=== PATIENT | male | born 1960 | race Caucasian/White ===

== ENCOUNTER 2018-11-12 10:51 | Inpatient (IN) | payer OTHER ==
--- NOTE | 2018-11-12 11:20 | EKG ---
Test Date: 2018-11-12 Test Time: 11:08:05 [employer]: ESCOBAR MEASUREMENT RESULTS: Intervals: Rate: 114 SC: 142 QRSD: 162 QT: 380 QTc: 523 [place]ina: P: 37 SC: 142 QRS: -83 T: 13 INTERPRETIVE STATEMENTS: Sinus tachycardia Right bundle branch block Left anterior fascicular block Bifascicular block Possible Lateral infarct, age undetermined Abnormal ECG Compared to ECG 04/02/2006 11:17:14 Right bundle-branch block now present Left anterior fascicular block now present Bifascicular block now present Myocardial infarct finding now present Sinus rhythm no longer present Left ventricular hypertrophy no longer present Electronically Signed On 11-12-18 11:19:35 [employer] by Satya Millan
[2018-11-12 11:41] LABS: Absolute Lymphocytes (CBC) 3.7 K/uL (0.7-4.9); Absolute Monocytes 0.8 K/uL (0.1-1.3); Absolute Neutrophil 7.7 K/uL (1.8-8.0); Eosinophils % 0.1 % (0-4.4); Hematocrit 55.9 % (39.6-49.0); Lymphocytes % 29.9 % (15.3-44.8); MPV 9.4 fL (7.6-11.3); Monocytes % 6.7 % (3.3-12.3); RBC Red Blood Cell Count 6.22 M/uL (4.33-5.43)
[2018-11-12 11:42] LABS: Protime INR 1.1
--- NOTE | 2018-11-12 11:42 | RAD REPORT ---
EXAM DESCRIPTION: RAD - Chest Single View - 11/12/2018 11:35 am CLINICAL HISTORY: CHEST PAIN Chest pain. COMPARISON: No comparisons FINDINGS: Portable technique limits examination quality. The lungs are grossly clear. The heart is mildly prominent with a mildly tortuous thoracic aorta. No displaced fractures.Hardware is present cervical spine. IMPRESSION: No acute intrathoracic process suspected.
[2018-11-12] MEDS ORDERED: ASPIRIN 81 MG CHEWABLE TABLET ONE (11:44)
[2018-11-12] MEDS ORDERED: METOPROLOL TAR 50 MG TAB ONE (11:44)
[2018-11-12] MEDS ORDERED: ENOXAPARIN 100 MG/ML SYR SQ ONE (11:45)
[2018-11-12] MEDS ORDERED: ONDANSETRON 4 MG/2 ML VIAL ONE (11:45)
[2018-11-12] MEDS ORDERED: METOPROLOL TARTRATE 5 MG/5 ML INJ IV ONE (11:45)
[2018-11-12] MEDS ORDERED: ENOXAPARIN 60 MG/0.6 ML SQ ONE (11:45)
[2018-11-12 11:59] LABS: ALT/SGPT 35 U/L (12-78); AST/SGOT 20 U/L (15-37); Albumin 4.3 g/dL (3.4-5.0); Alkaline Phosphatase 70 U/L (45-117); BUN Blood Urea Nitrogen 14 mg/dL (7-18); Bilirubin Direct 0.2 mg/dL (0-0.2); Bilirubin Total 0.5 mg/dL (0.2-1.0); Glucose Level 213 mg/dL (74-106); Lipase 175 U/L (73-393); Magnesium 2.5 mg/dL (1.8-2.4); NT PRO-BNP 63 pg/mL (<125); Potassium 4.7 mmol/L (3.5-5.1); Protein, Total 9.8 g/dL (6.4-8.2); Sodium Level 134 mmol/L (136-145); Troponin (Emerg Dept Use Only) < 0.02 ng/mL (0.0-0.045)
[2018-11-12 12:03] LABS: Bicarbonate 13 mmol/L (21-32)
[2018-11-12 12:23] LABS: Arterial Blood Carboxyhemoglob 1.1 % (0-1.5); Blood Gas Oxyhemoglobin 93.6 % (94-97); Blood O2 Saturation 96.1 % (92-98.5)
--- NOTE | 2018-11-12 12:45 | EDPHYS ---
Physician Documentation [facility] Name: Christiano Phipps Age: 57 yrs Sex: Male : 1960 Arrival Date: 11/12/2018 Time: 10:53 Bed 8 Private MD: NAYLA TOVAR ED Physician Earnest Kelley HPI: 11/12 11:28 This 57 yrs old Male presents to ER via Ambulatory with complaints of alfred Weakness, Chest Pain. 11:28 The patient presents to the emergency department with weakness of the. Onset: The alfred symptoms/episode began/occurred 4 day(s) ago. 11:29 The patient has shortness of breath with light activity. Duration: The symptoms are alfred continuous, and are steadily getting worse. The patient's shortness of breath is aggravated by light activity. The patient or guardian reports chest pain that is located primarily in the anterior chest wall, bilaterally. Onset: 4 day(s) ago. obese, cp x 4 days. The pain does not radiate. Associated signs and symptoms: Pertinent positives: non-productive cough. Severity of symptoms: At their worst the symptoms were moderate in the emergency department the symptoms are unchanged. Historical: - Allergies: 11:09 PENICILLINS; ss - Home Meds: 11:24 carvedilol 25 mg oral tab 1 tab daily [Active]; doxazosin 4 mg oral tab 1 tab once la1 daily [Active]; Farxiga 5 mg oral tab 1 tab once daily [Active]; losartan 100 mg oral tab 1 tab once daily [Active]; metformin 1,000 mg Oral tab 1 tab 2 times per day [Active]; aspirin 81 mg Oral TbEC 1 tab once daily [Active]; - PMHx: 11:09 Hypertension; Diabetes - NIDDM; ss - PSHx: 11:09 R elbow repair; knee repair; ss - Immunization history:: Adult Immunizations up to date. - Social history:: Smoking status: Patient/guardian denies using tobacco. - Ebola Screening: : Patient denies exposure to infectious person Patient denies travel to an Ebola-affected area in the 21 days before illness onset. - Family history:: not pertinent. ROS: 11:29 Constitutional: Negative for fever, chills, and weight loss, Eyes: Negative for injury, alfred pain, redness, and discharge, ENT: Negative for injury, pain, and discharge, Neck: Negative for injury, pain, and swelling, Abdomen/GI: Negative for abdominal pain, nausea, vomiting, diarrhea, and constipation, Back: Negative for injury and pain, : Negative for injury, bleeding, discharge, and swelling, MS/Extremity: Negative for injury and deformity, Skin: Negative for injury, rash, and discoloration, Neuro: Negative for headache, weakness, numbness, tingling, and seizure, Psych: Negative for depression, anxiety, suicide ideation, homicidal ideation, and hallucinations, Allergy/Immunology: Negative for hives, rash, and allergies, Endocrine: Negative for neck swelling, polydipsia, polyuria, polyphagia, and marked weight changes, Hematologic/Lymphatic: Negative for swollen nodes, abnormal bleeding, and unusual bruising. 11:29 Cardiovascular: Positive for chest pain. 11:29 Respiratory: Positive for shortness of breath. 11:29 Abdomen/GI: Positive for nausea. Exam: 11:29 Constitutional: This is a well developed, well nourished patient who is awake, alert, alfred and in no acute distress. Head/Face: Normocephalic, atraumatic. Eyes: Pupils equal round and reactive to light, extra-ocular motions intact. Lids and lashes normal. Conjunctiva and sclera are non-icteric and not injected. Cornea within normal limits. Periorbital areas with no swelling, redness, or edema. ENT: Nares patent. No nasal discharge, no septal abnormalities noted. Tympanic membranes are normal and external auditory canals are clear. Oropharynx with no redness, swelling, or masses, exudates, or evidence of obstruction, uvula midline. Mucous membranes moist. Neck: Trachea midline, no thyromegaly or masses palpated, and no cervical lymphadenopathy. Supple, full range of motion without nuchal rigidity, or vertebral point tenderness. No Meningismus. Chest/axilla: Normal chest wall appearance and motion. Nontender with no deformity. No lesions are appreciated. Cardiovascular: Regular rate and rhythm with a normal S1 and S2. No gallops, murmurs, or rubs. Normal PMI, no JVD. No pulse deficits. Respiratory: Lungs have equal breath sounds bilaterally, clear to auscultation and percussion. No rales, rhonchi or wheezes noted. No increased work of breathing, no retractions or nasal flaring. Abdomen/GI: Soft, non-tender, with normal bowel sounds. No distension or tympany. No guarding or rebound. No evidence of tenderness throughout. Back: No spinal tenderness. No costovertebral tenderness. Full range of motion. Male : Normal genitalia with no discharge or lesions. Skin: Warm, dry with normal turgor. Normal color with no rashes, no lesions, and no evidence of cellulitis. MS/ Extremity: Pulses equal, no cyanosis. Neurovascular intact. Full, normal range of motion. Neuro: Awake and alert, GCS 15, oriented to person, place, time, and situation. Cranial nerves II-XII grossly intact. Motor strength 5/5 in all extremities. Sensory grossly intact. Cerebellar exam normal. Normal gait. Psych: Awake, alert, with orientation to person, place and time. Behavior, mood, and affect are within normal limits. Vital Signs: 11:09 BP 163 / 107; Pulse 107; Resp 25; Temp 98.8(O); Pulse Ox 97% on R/A; Weight 181.44 kg; ss Height 6 ft. 3 in. (190.50 cm); Pain 6/10; 11:57 BP 158 / 105; Pulse 107; Resp 18; Pulse Ox 98% on R/A; la1 13:42 BP 175 / 87; Pulse 106; Resp 18; Pulse Ox 98% on R/A; la1 14:09 BP 158 / 83; Pulse 102; Resp 18; Pulse Ox 98% on R/A; la1 14:49 BP 158 / 88; Pulse 103; Resp 16; Temp 97.8(TE); Pulse Ox 98% on R/A; la1 11:09 Body Mass Index 50.00 (181.44 kg, 190.50 cm) MDM: 11:12 Patient medically screened. [facility] 11:32 Data reviewed: vital signs, nurses notes, lab test result(s), EKG, radiologic studies, alfred plain films. 11/12 11:13 Order name: Basic Metabolic Panel; Complete Time: 12:04 11/12 11:13 Order name: CBC with Diff; Complete Time: 12:04 11/12 11:13 Order name: LFT's; Complete Time: 12:04 11/12 11:13 Order name: Magnesium; Complete Time: 12:04 11/12 11:13 Order name: NT PRO-BNP; Complete Time: 12:04 nj11/12 11:13 Order name: PT-INR; Complete Time: 12:04 [facility] 11/12 11:13 Order name: Troponin (emerg Dept Use Only); Complete Time: 12:04 [facility] 11/12 11:14 Order name: Lipase; Complete Time: 12:04 [facility] 11/12 12:04 Order name: ABG; Complete Time: 12:37 [facility] 11/12 12:15 Order name: Blood Culture Adult (2) [facility] 11/12 12:15 Order name: Procalcitonin [facility] 11/12 12:15 Order name: Lactate [facility] 11/12 12:35 Order name: Urine Potassium Random; Complete Time: 13:35 [facility] 11/12 12:35 Order name: Urine Sodium Random; Complete Time: 13:35 [facility] 11/12 11:13 Order name: XRAY Chest (1 view); Complete Time: 12:04 [facility] 11/12 12:14 Order name: US Extremity Venous W Compression Alhaji [facility] 11/12 12:35 Order name: US Rp Exam Complete [facility] 11/12 12:47 Order name: LAB Misc. Test ag 11/12 13:01 Order name: Acetone Level [facility] 11/12 13:14 Order name: Urine Dipstick--Ancillary (enter results) ag 11/12 13:28 Order name: UR CL RANDOM; Complete Time: 13:35 [facility] 11/12 13:29 Order name: Urine Dipstick-Ancillary; Complete Time: 13:35 [facility] 11/12 14:48 Order name: Glucose, Ancillary Testing [facility] 11/12 14:49 Order name: [facility] 11/12 14:49 Order name: [facility] 11/12 11:13 Order name: EKG; Complete Time: 11:15 nj11/12 11:13 Order name: Cardiac monitoring; Complete Time: 11:14 nj11/12 11:13 Order name: EKG - Nurse/Tech; Complete Time: 11:14 nj11/12 11:13 Order name: IV Saline Lock; Complete Time: 11:14 nj11/12 11:14 Order name: Labs collected and sent; Complete Time: 11:14 nj11/12 11:14 Order name: O2 Per Protocol; Complete Time: 11:14 nj 11/12 11:14 Order name: O2 Sat Monitoring; Complete Time: 11:14 la1 11/12 12:13 Order name: IV - Large Bore; Complete Time: 13:43 alfred 11/12 12:32 Order name: Luciano; Complete Time: 12:54 alfred Administered Medications: 11:49 Drug: Zofran 4 mg Route: IVP; Site: left hand; la1 12:56 Follow up: Response: No adverse reaction la1 11:49 Drug: Aspirin Chewable Tablet 324 mg Route: PO; la1 12:56 Follow up: Response: No adverse reaction la1 11:50 Drug: Lovenox 150 mg Route: Sub-Q; Site: right lower abdomen; la1 12:56 Follow up: Response: No adverse reaction la1 11:52 Drug: Lopressor (metoprolol TARTRATE) 50 mg Route: PO; la1 12:55 Follow up: Response: No adverse reaction la1 11:52 Drug: Lopressor 5 mg Route: IVP; Site: left hand; la1 12:55 Follow up: Response: No adverse reaction; Blood pressure is lowered la1 12:33 CANCELLED (Duplicate Order): NS 0.9% 1000 ml IV at 125 ml/hr continuous alfred 13:44 Drug: NS 0.9% 1000 ml Route: IV; Rate: 1 bolus; Site: right antecubital; la1 13:48 Follow up: IV Status: Infusion continued upon admission la1 13:44 Drug: NS 0.9% 1000 ml Route: IV; Rate: 1 bolus; Site: left hand; la1 13:47 Follow up: IV Status: Infusion continued upon admission la1 13:44 Drug: Rocephin 1 grams Route: IV; Rate: per protocol; Site: left hand; la1 13:47 Follow up: IV Status: Completed infusion la1 13:47 Drug: Sodium Bicarbonate 1300 mg Route: PO; la1 13:47 Follow up: Response: No adverse reaction la1 14:50 Not Given (Other Intervention Used): Lactated Ringers Solution 1000 ml IV at 75 ml/hr la1 continuous Disposition: 11/12/18 12:45 Hospitalization ordered by Ameena Parker for Inpatient Admission. Preliminary diagnosis are Acidosis, Chest pain, unspecified, Obesity, unspecified, Type 2 diabetes mellitus. - Bed requested for Intensive Care Unit. - Status is Inpatient Admission. la1 - Condition is Serious. - Problem is new. - Symptoms are unchanged. UTI on Admission? No Signatures: Dispatcher [employer] EDEarnest Durbin MD MD cha Smirch, Shelby RN RN ss Rakesh Lr RN RN la1 Martina Carrion, INO RN df Corrections: (The following items were deleted from the chart) 12:33 12:13 NS 0.9% 1000 ml IV at 125 ml/hr continuous ordered. alfred [facility] 14:05 12:45 Hospitalization Ordered by Ameena Parker MD for Inpatient Admission. Preliminary df diagnosis is Acidosis; Chest pain, unspecified; Obesity, unspecified; Type 2 diabetes mellitus. Bed requested for Intensive Care Unit. Status is Inpatient Admission. Condition is Serious. Problem is new. Symptoms are unchanged. UTI on Admission? No. [facility] 14:53 14:05 11/12/2018 12:45 Hospitalization Ordered by Ameena Parker MD for Inpatient la1 Admission. Preliminary diagnosis is Acidosis; Chest pain, unspecified; Obesity, unspecified; Type 2 diabetes mellitus. Bed requested for Intensive Care Unit. Status is Inpatient Admission. Condition is Serious. Problem is new. Symptoms are unchanged. UTI on Admission? No. df
--- NOTE | 2018-11-12 12:45 | ER ---
Nurse's Notes [facility] Name: Christiano Phipps Age: 57 yrs Sex: Male : 1960 Arrival Date: 11/12/2018 Time: 10:53 Bed 8 Private MD: NAYLA TOVAR Diagnosis: Acidosis;Chest pain, unspecified;Obesity, unspecified;Type 2 diabetes mellitus Presentation: 11/12 11:08 Presenting complaint: Patient states: shortness of breath and chest pain on exertion x ss 2-3 days. Denies fever. Reports mild cough. Transition of care: patient was not received from another setting of care. Onset of symptoms was November 09, 2018. Risk Assessment: Do you want to hurt yourself or someone else? Patient reports no desire to harm self or others. Initial Sepsis Screen: Does the patient meet any 2 criteria? RR > 20 per min. HR > 90 bpm. Does the patient have a suspected source of infection? No. Patient's initial sepsis screen is negative. Care prior to arrival: None. 11:08 Method Of Arrival: Ambulatory ss 11:08 Acuity: BERTHA 2 ss Historical: - Allergies: 11:09 PENICILLINS; ss - Home Meds: 11:24 carvedilol 25 mg oral tab 1 tab daily [Active]; doxazosin 4 mg oral tab 1 tab once la1 daily [Active]; Farxiga 5 mg oral tab 1 tab once daily [Active]; losartan 100 mg oral tab 1 tab once daily [Active]; metformin 1,000 mg Oral tab 1 tab 2 times per day [Active]; aspirin 81 mg Oral TbEC 1 tab once daily [Active]; - PMHx: 11:09 Hypertension; Diabetes - NIDDM; ss - PSHx: 11:09 R elbow repair; knee repair; ss - Immunization history:: Adult Immunizations up to date. - Social history:: Smoking status: Patient/guardian denies using tobacco. - Ebola Screening: : Patient denies exposure to infectious person Patient denies travel to an Ebola-affected area in the 21 days before illness onset. - Family history:: not pertinent. Screenin:15 Abuse screen: Denies threats or abuse. Nutritional screening: No deficits noted. la1 Tuberculosis screening: No symptoms or risk factors identified. Fall Risk None identified. Assessment: 11:16 General: Appears uncomfortable, ill, Behavior is cooperative. Pain: Complains of pain la1 in chest Pain does not radiate. Pain currently is 5 out of 10 on a pain scale. Neuro: Level of Consciousness is awake, alert, obeys commands, Oriented to person, place, time, situation. Cardiovascular: Heart tones S1 S2 present Capillary refill < 3 seconds Patient's skin is warm and dry. Rhythm is sinus tachycardia. Respiratory: Airway is patent Respiratory effort is even, unlabored, Respiratory pattern is regular, symmetrical, Breath sounds are clear bilaterally. GI: Abdomen is obese, Bowel sounds present X 4 quads. Abd is soft and non tender X 4 quads. Reports constipation, Patient currently denies nausea, vomiting. : No signs and/or symptoms were reported regarding the genitourinary system. 13:43 Reassessment: Patient appears in no apparent distress at this time. No changes from la1 previously documented assessment. Patient and/or family updated on plan of care and expected duration. Pain level reassessed. Patient is alert, oriented x 3, equal unlabored respirations, skin warm/dry/pink. 14:20 Reassessment: Patient appears in no apparent distress at this time. No changes from la1 previously documented assessment. Patient and/or family updated on plan of care and expected duration. Pain level reassessed. Patient is alert, oriented x 3, equal unlabored respirations, skin warm/dry/pink. Vital Signs: 11:09 BP 163 / 107; Pulse 107; Resp 25; Temp 98.8(O); Pulse Ox 97% on R/A; Weight 181.44 kg; ss Height 6 ft. 3 in. (190.50 cm); Pain 6/10; 11:57 BP 158 / 105; Pulse 107; Resp 18; Pulse Ox 98% on R/A; la1 13:42 BP 175 / 87; Pulse 106; Resp 18; Pulse Ox 98% on R/A; la1 14:09 BP 158 / 83; Pulse 102; Resp 18; Pulse Ox 98% on R/A; la1 14:49 BP 158 / 88; Pulse 103; Resp 16; Temp 97.8(TE); Pulse Ox 98% on R/A; la1 11:09 Body Mass Index 50.00 (181.44 kg, 190.50 cm) ED Course: 10:53 Patient arrived in ED. sb2 10:53 GUY, STEPAHANIE is Private Physician. sb2 11:00 Rakesh Lr, RN is Primary Nurse. la1 11:08 Triage completed. ss 11:09 Arm band placed on right wrist. ss 11:11 Earnest Kelley MD is Attending Physician. alfred 11:12 EKG done, by cryptographic technician. reviewed by Earnest Kelley MD. sm3 11:15 No provider procedures requiring assistance completed. Inserted saline lock: 22 gauge la1 in left hand, using aseptic technique. Blood collected. 11:17 Placed in gown. Bed in low position. Call light in reach. potline monitor on. Pulse ox la1 on. NIBP on. 11:30 X-ray completed. Portable x-ray completed in exam room. Patient tolerated procedure jb2 well. 11:34 XRAY Chest (1 view) In Process Unspecified. EDMS 12:42 Ameena Parker MD is Hospitalizing Provider. alfred 12:54 Luciano cath inserted, using sterile technique, 18 Fr., by ok, balloon inflated, to la1 gravity drainage, urine specimen collected. 13:03 Urine collected: Luciano catheter specimen, cloudy, danielle colored. jb1 14:34 Note: us done portable in er/bedside. aa4 14:49 Patient admitted, IV remains in place. la1 Administered Medications: 11:49 Drug: Zofran 4 mg Route: IVP; Site: left hand; la1 12:56 Follow up: Response: No adverse reaction la1 11:49 Drug: Aspirin Chewable Tablet 324 mg Route: PO; la1 12:56 Follow up: Response: No adverse reaction la1 11:50 Drug: Lovenox 150 mg Route: Sub-Q; Site: right lower abdomen; la1 12:56 Follow up: Response: No adverse reaction la1 11:52 Drug: Lopressor (metoprolol TARTRATE) 50 mg Route: PO; la1 12:55 Follow up: Response: No adverse reaction la1 11:52 Drug: Lopressor 5 mg Route: IVP; Site: left hand; la1 12:55 Follow up: Response: No adverse reaction; Blood pressure is lowered la1 12:33 CANCELLED (Duplicate Order): NS 0.9% 1000 ml IV at 125 ml/hr continuous alfred 13:44 Drug: NS 0.9% 1000 ml Route: IV; Rate: 1 bolus; Site: right antecubital; la1 13:48 Follow up: IV Status: Infusion continued upon admission la1 13:44 Drug: NS 0.9% 1000 ml Route: IV; Rate: 1 bolus; Site: left hand; la1 13:47 Follow up: IV Status: Infusion continued upon admission la1 13:44 Drug: Rocephin 1 grams Route: IV; Rate: per protocol; Site: left hand; la1 13:47 Follow up: IV Status: Completed infusion la1 13:47 Drug: Sodium Bicarbonate 1300 mg Route: PO; la1 13:47 Follow up: Response: No adverse reaction la1 14:50 Not Given (Other Intervention Used): Lactated Ringers Solution 1000 ml IV at 75 ml/hr la1 continuous Outcome: 12:45 Decision to Hospitalize by Provider. [facility] 14:50 Admitted to ICU accompanied by nurse, accompanied by tech, via stretcher, room 2, with la1 chart. 14:50 Condition: stable 14:50 Instructed on the need for admit. 14:53 Patient left the ED. la1 Signatures: Dispatcher [employer] EDArturo Palomares jb1 Earnest Kelley MD MD cha Buechter, Jesse jb2 Victoria Jaramillo4 Marisa Delacruz RN RN Rakesh Lr RN RN la1 Charlene Estrada2 Annie Rodriguez 3 Corrections: (The following items were deleted from the chart) 11:10 11:08 Acuity: BERTHA 3 ss
[2018-11-12] MEDS ORDERED: CEFTRIAXONE/SWI 1gm 1 GM/10 ML SYR ONE (13:07)
[2018-11-12] MEDS ORDERED: NA CHLORIDE 0.9% 2,000 ML ONE (13:07)
[2018-11-12] MEDS ORDERED: SODIUM BICARB 325 MG TAB PO ONE (13:15)
[2018-11-12 13:29] LABS: Urine Blood 1+ (NEG); Urine Glucose 2+ (NEG); Urine Protein 2+ (NEG)
[2018-11-12] MEDS ORDERED: INSULIN -REGULAR HUMAN 100 UNIT in NA CHLORIDE 0.9% 100 ML IV SCH (14:08)
[2018-11-12] MEDS ORDERED: D5 0.45 NS 1,000 ML IV SCH (14:08)
--- NOTE | 2018-11-12 14:47 | RAD REPORT ---
EXAM DESCRIPTION: US - Extrem Venous W Compress Alhaji - 11/12/2018 2:33 pm CLINICAL HISTORY: SWELLING Bilateral leg edema and swelling. COMPARISON: No comparisons TECHNIQUE: Real-time sonographic interrogation of the left and right lower extremity deep venous sys tems was performed. FINDINGS: Normal compressibility, flow augmentation, phasic flow and spontaneous flow is identified in both the left and right lower extremity deep venous systems. 5 x 3 cm right Gonzalez's cyst is presen t. IMPRESSION: No sonographic evidence of left or right lower extremity deep venous thrombosis.
--- NOTE | 2018-11-12 14:48 | RAD REPORT ---
EXAM DESCRIPTION: US - Renal Ultrasound-Complete - 11/12/2018 2:33 pm CLINICAL HISTORY: PAIN COMPARISON: No comparisons FINDINGS: Both kidneys are normal in size, shape and echotexture. The right kidney measures 12.1 x 6.7 x 5.3 cm. No hydronephrosis, focal mass or perinephric fluid. The left kidney measures 11.7 x 5.7 x 4.6 cm. No hydronephrosis, focal mass or perinephric fluid. The urinary bladder is incompletely distended without gross abnormality seen. IMPRESSION: Unremarkable renal sonogram.
[2018-11-12] MEDS ORDERED: SODIUM CHLORIDE 0.9% 10ML INJ IV PRN (17:04)
[2018-11-12] MEDS: PANTOPRAZOLE 40 MG INJ IVP SCH (17:14)
[2018-11-12] MEDS: ONDANSETRON 4 MG/2 ML VIAL IV PRN ×2 (17:14→21:55)
[2018-11-12] MEDS ORDERED: D5W 1,000 ML with NA BICARB 8.4% 50 MEQ IV SCH ×2 (19:00)
--- NOTE | 2018-11-12 19:18 | P.HP ---
Certification for Inpatient Patient admitted to: Inpatient With expected LOS: >2 Midnights Patient will require the following post-hospital care: None Practitioner: I am a practitioner with admitting privileges, knowledge of patient current condition, hospital course, and medical plan of care. Services: Services provided to patient in accordance with Admission requirements found in Title 42 Section 412.3 of the Code of Federal Regulations Patient History Date of Service: 11/13/18 History of Present Illness: This is a 57-year-old male with past medical history of diet 2 diabetes for more than 10 years along with hypertension who presented to the hospital complaining of having some generalized weakness nausea vomiting that has been getting worse for past couple of days. Patient stated that he has been having mentation along with increased urination and frequency that has gotten progressively worse. Patient has stated that he has stopped taking all his medications for over a month ago and was prescribed a medication for Diabetes farxiga ~1wk ago that he has been taking along NSAIDs for his knee pain. Patient denies having any chest pain shortness of breath or any other associated symptoms at this time. Patient also denies smoking alcohol abuse or any drugs at this time. In the ER patient was found to have DKA and was thus admitted to the hospital for further workup and treatment Allergies Penicillins Allergy (Verified 11/12/18 15:11) unknown Home Medications: Aspirin [Aspir-Low] 81 mg PO DAILY 11/12/18 Carvedilol 25 mg PO DAILY 11/12/18 Dapagliflozin Propanediol [Farxiga] 5 mg PO DAILY 11/12/18 Doxazosin [Cardura] 4 mg PO DAILY 11/12/18 Losartan Potassium [Cozaar] 100 mg PO DAILY 11/12/18 Metformin HCl 1,000 mg PO BID 11/12/18 - Past Medical/Surgical History Has patient received pneumonia vaccine in the past: No Diabetic: Yes -: HTN -: DM -: Back-fused 5&6&7 -: elbow -: knee - Family History Mother History Unknown: Yes -: Hypertension, Diabetes, Cancer Notes: Bile duct [place] - Social History Smoking Status: Never smoker Alcohol use: Yes CD- Drugs: No Caffeine use: Yes Place of Residence: Home Review of Systems 10-point ROS is otherwise unremarkable Physical Examination - Vital Signs Temperature: 98.2 F Blood Pressure: 184/95 Pulse: 109 Respirations: 16 Pulse Ox (%): 97 - Physical Exam General: Alert, Mild distress, Obese HEENT: Atraumatic, PERRLA, Mucous membr. moist/pink, EOMI, Sclerae nonicteric Neck: Supple, 2+ carotid pulse no bruit, No LAD, Without JVD or thyroid abnormality Respiratory: Clear to auscultation bilaterally, Normal air movement Cardiovascular: Regular rate/rhythm, Normal S1 S2 Gastrointestinal: Normal bowel sounds, No tenderness Musculoskeletal: No tenderness Integumentary: No rashes Neurological: Normal gait, Normal speech, Normal strength at 5/5 x4 extr, Normal tone, Normal affect Lymphatics: No axilla or inguinal lymphadenopathy - Studies Laboratory Data (last 24 hrs) 11/12/18 11:15: PT 13.0 H, INR 1.10 11/12/18 11:15: WBC 12.3 H, Hgb 17.9, Hct 55.9 H, Plt Count 276 11/12/18 11:15: Sodium 134 L, Potassium 4.7, BUN 14, Creatinine 1.44 H, Glucose 213 H, Magnesium 2.5 H, Total Bilirubin 0.5, AST 20, ALT 35, Alkaline Phosphatase 70, Lipase 175 Assessment and Plan - Problems (Diagnosis) (1) DKA (diabetic ketoacidoses) Current Visit: Yes Status: Acute Plan: DKA most likely 2.2 to Noncompliance with Medication and diet -Currently on DKA protocol - Insulin ggt, D5W with Bicarb and NPO diet -BMP and Acetone Level q4h -Last gap at 14 and ketone level Small. -Will continue Insulin GGT till gap closed x 2 and Ketone Negative. -Nephrology consulted due to Acidosis Qualifiers: Diabetes mellitus type: type 2 Diabetes mellitus complication detail: without coma Qualified Code(s): E11.10 - Type 2 diabetes mellitus with ketoacidosis without coma (2) ANA (acute kidney injury) Current Visit: Yes Status: Acute Plan: Most likely 2.2 to dehydration vs Medication SE -IV fluids for now -Nephrology consulted. Appreciated Reccs (3) Diabetes Current Visit: Yes Status: Chronic Qualifiers: Diabetes mellitus type: type 2 Diabetes mellitus exterminator termite insulin use: without exterminator termite use Diabetes mellitus complication status: with unspecified complications Qualified Code(s): E11.8 - Type 2 diabetes mellitus with unspecified complications (4) HTN (hypertension) Current Visit: Yes Status: Chronic Qualifiers: Hypertension type: essential hypertension Qualified Code(s): I10 - Essential (primary) hypertension (5) Morbid obesity Current Visit: Yes Status: Chronic - Plan The patient will be admitted to the ICU for DKA most likely secondary to noncompliance with medication and will be treated with insulin drip at this time. Discharge Plan: Home Plan to discharge in: Greater than 2 days - Advance Directives Does patient have a Living Will: No Does patient have a Durable POA for Healthcare: No - Code Status/Comfort Care Code Status Assessed: Yes Critical Care: Yes
[2018-11-12 19:31] LABS: BUN Blood Urea Nitrogen 14 mg/dL (7-18); Glucose Level 207 mg/dL (74-106); Potassium 4.4 mmol/L (3.5-5.1); Sodium Level 135 mmol/L (136-145)
--- NOTE | 2018-11-12 19:35 | P.CNS ---
Date of Consult: 11/12/18 Reason for Consult: abnormal RFT and acidosis Chief Complaint: weakness , chest pain History of Present Illness: a 57 Y/o man with PMhx of DM II dx >10 yrs ago with neuropathy , and HTN Pt presented with weakaness , and poor mentation of 3 days duration pt stopped taking metformin ~1month ago, was prescribed farxiga ~1wk ago, pt was also taking NSAID for the last 2wks for knee pain denied alcohol abuse or herba medication intake 1 episode of vomiting , no diarrhea in ER bicarb 13, Cr 1.4 Allergies Penicillins Allergy (Verified 11/12/18 15:11) unknown Home Medications: Aspirin [Aspir-Low] 81 mg PO DAILY 11/12/18 Carvedilol 25 mg PO DAILY 11/12/18 Dapagliflozin Propanediol [Farxiga] 5 mg PO DAILY 11/12/18 Doxazosin [Cardura] 4 mg PO DAILY 11/12/18 Losartan Potassium [Cozaar] 100 mg PO DAILY 11/12/18 Metformin HCl 1,000 mg PO BID 11/12/18 - Past Medical/Surgical History Diabetic: Yes -: HTN -: DM -: Back-fused 5&6&7 -: elbow -: knee - Family History Mother History Unknown: Yes Medical History: Hypertension, Diabetes, Cancer Notes: Bile duct [place] - Social History Alcohol use: Yes CD- Drugs: No Caffeine use: Yes Place of Residence: Home Physical Examination Temp Pulse Resp BP Pulse Ox 98.2 F 109 H 16 184/95 H 97 11/12/18 19:18 11/12/18 19:18 11/12/18 19:18 11/12/18 19:18 11/12/18 19:18 General: Oriented x3 HEENT: Atraumatic Neck: Supple, Without JVD or thyroid abnormality Respiratory: Clear to auscultation bilaterally Cardiovascular: No edema, Regular rate/rhythm, Normal S1 S2 Gastrointestinal: Normal bowel sounds Laboratory Data (last 24 hrs) 11/12/18 11:15: PT 13.0 H, INR 1.10 11/12/18 11:15: WBC 12.3 H, Hgb 17.9, Hct 55.9 H, Plt Count 276 11/12/18 11:15: Sodium 134 L, Potassium 4.7, BUN 14, Creatinine 1.44 H, Glucose 213 H, Magnesium 2.5 H, Total Bilirubin 0.5, AST 20, ALT 35, Alkaline Phosphatase 70, Lipase 175 - Problems (1) ANA (acute kidney injury) Current Visit: Yes Status: Acute (2) Acidosis, metabolic, with respiratory acidosis Current Visit: Yes Status: Acute Conclusions/Impression: a 57 Y/o man with PMhx of DM II dx >10 yrs ago with neuropathy , and HTN Pt presented with weakaness , and poor mentation of 3 days duration pt stopped taking metformin ~1month ago, was prescribed farxiga ~1wk ago, pt was also taking NSAID for the last 2wks for knee pain denied alcohol abuse or herba medication intake 1 episode of vomiting , no diarrhea in ER bicarb 13, Cr 1.4 Met acidosis and resp acidosis likely due to farxiga +/- DM Cont IVF and switch to bicarb drip if still severely acidotic lactate WNl dc farxiga will check EtOH level DM as per primary ANA unknown baseline Cr ' liely prerenal US no hydro IVF HTN will hold losartan
[2018-11-12 19:45] LABS: Bicarbonate 11 mmol/L (21-32)
[2018-11-12] MEDS: CARVEDILOL 25 MG TAB PO SCH (20:28)
[2018-11-12] MEDS: DOXAZOSIN 4 MG TAB PO SCH (20:28)
[2018-11-12] MEDS: D5W 1,000 ML with NA BICARB 8.4% 150 MEQ IV SCH ×2 (21:00)
[2018-11-12] MEDS ORDERED: LOSARTAN POTASSIUM 50 MG TABLET PO SCH (21:00)
[2018-11-12] MEDS ORDERED: MORPHINE 2 MG/ML SYR IV ONE (21:42)
[2018-11-12] MEDS ORDERED: MORPHINE 4 MG/ML SYR ONE (22:03)
[2018-11-12 22:28] LABS: BUN Blood Urea Nitrogen 13 mg/dL (7-18); Glucose Level 201 mg/dL (74-106); Potassium 4.2 mmol/L (3.5-5.1); Sodium Level 134 mmol/L (136-145)
[2018-11-12 22:29] LABS: Bicarbonate 13 mmol/L (21-32)
[2018-11-13] MEDS: D5W 1,000 ML with NA BICARB 8.4% 150 MEQ IV SCH ×4 (02:03→06:12)
[2018-11-13 05:57] LABS: BUN Blood Urea Nitrogen 13 mg/dL (7-18); Bicarbonate 15 mmol/L (21-32); Glucose Level 225 mg/dL (74-106); HDL Cholesterol 35 mg/dL (40-60); LDL Cholesterol, Calculated 236 (<130); Magnesium 2.5 mg/dL (1.8-2.4); Phosphorus 2.3 mg/dL (2.5-4.9); Potassium 4.2 mmol/L (3.5-5.1); Sodium Level 136 mmol/L (136-145)
[2018-11-13] MEDS: CARVEDILOL 25 MG TAB PO SCH (06:04)
[2018-11-13] MEDS: ENOXAPARIN 40 MG/0.4 ML SQ SCH (08:53)
[2018-11-13] MEDS: PANTOPRAZOLE 40 MG INJ IVP SCH (08:53)
[2018-11-13 09:53] LABS: BUN Blood Urea Nitrogen 13 mg/dL (7-18); Bicarbonate 16 mmol/L (21-32); Glucose Level 238 mg/dL (74-106); Potassium 3.9 mmol/L (3.5-5.1); Sodium Level 135 mmol/L (136-145)
[2018-11-13 11:11] LABS: Urine Protein/Creatinine Ratio 0.43 ratio (<0.15)
--- NOTE | 2018-11-13 11:33 | P.PN ---
Subjective Date of Service: 11/13/18 Chief Complaint: weakness , chest pain Subjective: Improving presented with weakness, polydypsia and polyurea ANA with acidosis , off DM meds for 1month Cr improved, gap closing Physical Examination - Vital Signs Temperature: 98.1 F Blood Pressure: 157/81 Pulse: 89 Respirations: 19 Pulse Ox (%): 96 - Physical Exam General: In no apparent distress, Oriented x3 HEENT: Atraumatic Neck: Supple, Without JVD or thyroid abnormality Respiratory: Clear to auscultation bilaterally, Normal air movement Cardiovascular: No edema, Regular rate/rhythm, Normal S1 S2 Gastrointestinal: Normal bowel sounds - Studies Laboratory Data (last 24 hrs) 11/12/18 11:15: PT 13.0 H, INR 1.10 11/12/18 11:15: WBC 12.3 H, Hgb 17.9, Hct 55.9 H, Plt Count 276 11/12/18 11:15: Sodium 134 L, Potassium 4.7, BUN 14, Creatinine 1.44 H, Glucose 213 H, Magnesium 2.5 H, Total Bilirubin 0.5, AST 20, ALT 35, Alkaline Phosphatase 70, Lipase 175 Assessment And Plan - Current Problems (Diagnosis) (1) ANA (acute kidney injury) Current Visit: Yes Status: Acute (2) Acidosis, metabolic, with respiratory acidosis Current Visit: Yes Status: Acute - Plan a 57 Y/o man with PMhx of DM II dx >10 yrs ago with neuropathy , and HTN Pt presented with weakaness , and poor mentation of 3 days duration pt stopped taking metformin ~1month ago, was prescribed farxiga ~1wk ago, pt was also taking NSAID for the last 2wks for knee pain denied alcohol abuse or herba medication intake 1 episode of vomiting , no diarrhea in ER bicarb 13, Cr 1.4 Met acidosis and resp acidosis likely due DKA +/- Farxiga Insulin drip lactate WNl dc farxiga will check EtOH level gap closing, bicarb improving if repeated labs showed similar or improved bicarb then will change fluid to D5+ 75meq of KCl monitor K and Ca DKA insulin drip gap closing check A1c ANA, improving unknown baseline Cr ' lkiely prerenal US no hydro IVF will dc folry tomorrow HTN will hold losartan
[2018-11-13 13:46] LABS: Absolute Neutrophil 6.4 K/uL (1.8-8.0); Basophils % 1.4 % (0-1.3); Eosinophils % 0.2 % (0-4.4); Hematocrit 45.9 % (39.6-49.0); Lymphocytes % 28.6 % (15.3-44.8); MPV 9.3 fL (7.6-11.3); Monocytes % 9.7 % (3.3-12.3); RBC Red Blood Cell Count 5.28 M/uL (4.33-5.43)
[2018-11-13 14:01] LABS: BUN Blood Urea Nitrogen 12 mg/dL (7-18); Bicarbonate 23 mmol/L (21-32); Glucose Level 239 mg/dL (74-106); Potassium 3.6 mmol/L (3.5-5.1); Sodium Level 135 mmol/L (136-145)
[2018-11-13] MEDS ORDERED: POTASSIUM CL SA 10 MEQ TAB PO ONE (14:33)
[2018-11-13] MEDS: D5 0.45 NS 1,000 ML IV SCH (15:20)
--- NOTE | 2018-11-13 16:24 | P.PN ---
Subjective Date of Service: 11/13/18 Chief Complaint: weakness , chest pain Pt seen and examined at bedside. Chart Reviewed. Currently on Insulin ggt. No complains to offer overnight. Denies N/V. Review of Systems 10-point ROS is otherwise unremarkable Physical Examination - Vital Signs Temperature: 98.1 F Blood Pressure: 168/68 Pulse: 83 Respirations: 16 Pulse Ox (%): 97 - Physical Exam General: Alert, In no apparent distress, Obese HEENT: Atraumatic, PERRLA, EOMI Neck: Supple, JVD not distended Respiratory: Clear to auscultation bilaterally, Normal air movement Cardiovascular: Regular rate/rhythm, Normal S1 S2 Gastrointestinal: Normal bowel sounds, No tenderness Musculoskeletal: No tenderness Integumentary: No rashes Neurological: Normal speech, Normal tone, Normal affect Lymphatics: No axilla or inguinal lymphadenopathy - Studies Medications List Reviewed: Yes Assessment And Plan - Current Problems (Diagnosis) (1) DKA (diabetic ketoacidoses) Current Visit: Yes Status: Acute Plan: DKA most likely 2.2 to Noncompliance with Medication and diet -Currently on DKA protocol - Insulin ggt, D5W with Bicarb and NPO diet -BMP and Acetone Level q4h -Last gap at 18 and ketone level Mod. -Will continue Insulin GGT till gap closed x 2 and Ketone Negative. -Nephrology consulted due to Acidosis -Will switch to Long acting Qualifiers: Diabetes mellitus type: type 2 Diabetes mellitus complication detail: without coma Qualified Code(s): E11.10 - Type 2 diabetes mellitus with ketoacidosis without coma (2) ANA (acute kidney injury) Current Visit: Yes Status: Acute Plan: Most likely 2.2 to dehydration vs Medication SE -IV fluids for now -Nephrology consulted. Appreciated Reccs (3) Diabetes Current Visit: Yes Status: Chronic Qualifiers: Diabetes mellitus type: type 2 Diabetes mellitus termite inspector insulin use: without retirement use Diabetes mellitus complication status: with unspecified complications Qualified Code(s): E11.8 - Type 2 diabetes mellitus with unspecified complications (4) HTN (hypertension) Current Visit: Yes Status: Chronic Qualifiers: Hypertension type: essential hypertension Qualified Code(s): I10 - Essential (primary) hypertension (5) Morbid obesity Current Visit: Yes Status: Chronic Discharge Plan: Home Plan to discharge in: Greater than 2 days - Code Status/Comfort Care Code Status Assessed: Yes Critical Care: Yes
[2018-11-13 17:20] LABS: Absolute Lymphocytes (CBC) 3.1 K/uL (0.7-4.9); Absolute Neutrophil 5.8 K/uL (1.8-8.0); Basophils % 0.9 % (0-1.3); Eosinophils % 0.2 % (0-4.4); Hematocrit 45.5 % (39.6-49.0); Lymphocytes % 30.9 % (15.3-44.8); MPV 8.9 fL (7.6-11.3); Monocytes % 10.3 % (3.3-12.3)
[2018-11-13 17:39] LABS: BUN Blood Urea Nitrogen 12 mg/dL (7-18); Bicarbonate 24 mmol/L (21-32); Glucose Level 228 mg/dL (74-106); Potassium 3.7 mmol/L (3.5-5.1); Sodium Level 135 mmol/L (136-145)
[2018-11-13] MEDS ORDERED: D50W 25 GM/50 ML SYRINGE IV PRN (18:13)
[2018-11-13] MEDS ORDERED: GLUCAGON 1 MG/VIAL IM PRN (18:13)
[2018-11-13] MEDS ORDERED: LOSARTAN POTASSIUM 50 MG TABLET PO SCH (18:17)
[2018-11-13] MEDS ORDERED: INSULIN GLARGINE 100 UNITS/ML SQ ONE (18:18)
[2018-11-13] MEDS ORDERED: AMLODIPINE 5 MG TAB PO ONE (18:20)
[2018-11-13] MEDS: ACETAMINOPHEN 500 MG TAB PO PRN (18:29)
[2018-11-13] MEDS: DOXAZOSIN 4 MG TAB PO SCH (21:40)
[2018-11-13] MEDS: INSULIN -REGULAR HUMAN 50 UNIT/0.5 ML ML SQ SCH (21:41)
[2018-11-13 21:45] LABS: Absolute Lymphocytes (CBC) 3.5 K/uL (0.7-4.9); Absolute Monocytes 1.3 K/uL (0.1-1.3); Absolute Neutrophil 5.8 K/uL (1.8-8.0); Basophils % 2.1 % (0-1.3); Eosinophils % 0.6 % (0-4.4); Hematocrit 44.5 % (39.6-49.0); Lymphocytes % 31.9 % (15.3-44.8); MPV 9.1 fL (7.6-11.3); Monocytes % 12.2 % (3.3-12.3); RBC Red Blood Cell Count 5.13 M/uL (4.33-5.43)
[2018-11-13 22:59] LABS: BUN Blood Urea Nitrogen 12 mg/dL (7-18); Bicarbonate 24 mmol/L (21-32); Glucose Level 233 mg/dL (74-106); Potassium 3.2 mmol/L (3.5-5.1); Sodium Level 137 mmol/L (136-145)
[2018-11-14] MEDS: D5 0.45 NS 1,000 ML IV SCH (02:30)
[2018-11-14] MEDS: ACETAMINOPHEN 500 MG TAB PO PRN (02:30)
[2018-11-14] MEDS ORDERED: TRAMADOL HCL 50 MG TAB PO ONE (03:52)
[2018-11-14] MEDS: CARVEDILOL 25 MG TAB PO SCH (05:46)
[2018-11-14 06:20] LABS: Absolute Lymphocytes (CBC) 3.1 K/uL (0.7-4.9); Absolute Monocytes 0.8 K/uL (0.1-1.3); Absolute Neutrophil 4.6 K/uL (1.8-8.0); Basophils % 1.2 % (0-1.3); Eosinophils % 0.6 % (0-4.4); MPV 9.2 fL (7.6-11.3); Monocytes % 9.1 % (3.3-12.3); RBC Red Blood Cell Count 4.87 M/uL (4.33-5.43)
[2018-11-14 06:41] LABS: BUN Blood Urea Nitrogen 10 mg/dL (7-18); Bicarbonate 23 mmol/L (21-32); Glucose Level 219 mg/dL (74-106); Potassium 3.2 mmol/L (3.5-5.1); Sodium Level 138 mmol/L (136-145)
[2018-11-14] MEDS ORDERED: POTASSIUM 25 MEQ EFFERV TAB PO ONE (08:00)
[2018-11-14] MEDS: INSULIN -REGULAR HUMAN 50 UNIT/0.5 ML ML SQ SCH ×4 (08:19→21:00)
[2018-11-14] MEDS: ENOXAPARIN 40 MG/0.4 ML SQ SCH (08:19)
[2018-11-14] MEDS: PANTOPRAZOLE 40 MG INJ IVP SCH (08:19)
[2018-11-14] MEDS: ONDANSETRON 4 MG/2 ML VIAL IV PRN (08:58)
--- NOTE | 2018-11-14 10:40 | P.PN ---
Subjective Date of Service: 11/14/18 Chief Complaint: weakness , chest pain Pt seen and examined at bedside. Chart Reviewed. Now off the Insulin ggt. Doing well overall. Tolerating Diet well as well. transfer to the floor Review of Systems 10-point ROS is otherwise unremarkable Physical Examination - Vital Signs Temperature: 97.6 F Blood Pressure: 154/69 Pulse: 83 Respirations: 21 Pulse Ox (%): 92 - Physical Exam General: Alert, In no apparent distress, Obese HEENT: Atraumatic, PERRLA, EOMI Neck: Supple, JVD not distended Respiratory: Clear to auscultation bilaterally, Normal air movement Cardiovascular: Regular rate/rhythm, Normal S1 S2 Gastrointestinal: Normal bowel sounds, No tenderness Musculoskeletal: No tenderness Integumentary: No rashes Neurological: Normal speech, Normal tone, Normal affect Lymphatics: No axilla or inguinal lymphadenopathy - Studies Medications List Reviewed: Yes Assessment And Plan - Current Problems (Diagnosis) (1) DKA (diabetic ketoacidoses) Current Visit: Yes Status: Acute Plan: DKA most likely 2.2 to Noncompliance with Medication and diet. Now resolved. -Off the insulin ggt. Started on [place] levemir 5AM/10PM and Mild Sliding scale -Started on BB, ARB, statin -Hga1c is 10.6 and elevated Cholestrol -ASCVD risk is high Qualifiers: Diabetes mellitus type: type 2 Diabetes mellitus complication detail: without coma Qualified Code(s): E11.10 - Type 2 diabetes mellitus with ketoacidosis without coma (2) ANA (acute kidney injury) Current Visit: Yes Status: Acute Plan: Most likely 2.2 to dehydration vs Medication SE. Reolved now -Nephrology consulted. Appreciated Reccs (3) Diabetes Current Visit: Yes Status: Chronic Qualifiers: Diabetes mellitus type: type 2 Diabetes mellitus superintendent terminal insulin use: without superintendent terminal use Diabetes mellitus complication status: with unspecified complications Qualified Code(s): E11.8 - Type 2 diabetes mellitus with unspecified complications (4) HTN (hypertension) Current Visit: Yes Status: Chronic Qualifiers: Hypertension type: essential hypertension Qualified Code(s): I10 - Essential (primary) hypertension (5) Morbid obesity Current Visit: Yes Status: Chronic - Plan Patient is doing much better today. Currently sugars are in the high 200. Started on long-acting insulin along with sliding scale. Will observe for next 24 hr for proper insulin requirement. Patient will need to establish care with a primary care provider. Will transfer to the floor and anticipate discharge in next 24-48 hr Discharge Plan: Home Plan to discharge in: 24 Hours - Code Status/Comfort Care Code Status Assessed: Yes Critical Care: Yes
[2018-11-14] MEDS: TOPIRAMATE 25 MG TAB PO SCH ×2 (13:39→21:15)
--- NOTE | 2018-11-14 13:46 | P.PN ---
Subjective Date of Service: 11/14/18 Chief Complaint: weakness , chest pain Subjective: Improving presented with weakness, polydypsia and polyurea ANA with acidosis , off DM meds for 1month Cr improved on insulin SC agree to restart losartan TOV Physical Examination - Vital Signs Temperature: 97.6 F Blood Pressure: 154/72 Pulse: 77 Respirations: 15 Pulse Ox (%): 95 - Physical Exam General: In no apparent distress, Oriented x3 HEENT: Atraumatic Neck: Supple, Without JVD or thyroid abnormality Respiratory: Clear to auscultation bilaterally Cardiovascular: No edema, Regular rate/rhythm, No rubs, No murmurs Gastrointestinal: Normal bowel sounds, Soft and benign - Studies Medications List Reviewed: Yes Assessment And Plan - Current Problems (Diagnosis) (1) ANA (acute kidney injury) Current Visit: Yes Status: Acute (2) Acidosis, metabolic, with respiratory acidosis Current Visit: Yes Status: Acute - Plan a 57 Y/o man with PMhx of DM II dx >10 yrs ago with neuropathy , and HTN Pt presented with weakaness , and poor mentation of 3 days duration pt stopped taking metformin ~1month ago, was prescribed farxiga ~1wk ago, pt was also taking NSAID for the last 2wks for knee pain denied alcohol abuse or herba medication intake 1 episode of vomiting , no diarrhea in ER bicarb 13, Cr 1.4 Met acidosis and resp acidosis resolved Due DKA +/- Farxiga DM A1c 10 started on isnulin ANA, improving unknown baseline Cr ' likely prerenal US no hydro HTN losartan , Coreg
[2018-11-14] MEDS ORDERED: POTASSIUM CL SA 10 MEQ TAB PO ONE (16:21)
[2018-11-14] MEDS ORDERED: INSULIN GLARGINE 100 UNITS/ML SQ SCH (17:00)
[2018-11-14] MEDS ORDERED: POTASSIUM 25 MEQ EFFERV TAB PO SCH (17:00)
[2018-11-14] MEDS: POTASS/SODIUM PHOSPHATE 1 PKT POWD.PACK PO SCH ×3 (17:42→19:34)
[2018-11-14] MEDS ORDERED: ATORVASTATIN 40 MG TAB PO SCH (21:00)
[2018-11-14] MEDS: DOXAZOSIN 4 MG TAB PO SCH (21:00)
[2018-11-14] MEDS ORDERED: DOXAZOSIN 2 MG TAB ONE (21:17)
[2018-11-15 04:57] LABS: Phosphorus 1.6 mg/dL (2.5-4.9); Potassium 3.5 mmol/L (3.5-5.1)
[2018-11-15] MEDS: CARVEDILOL 25 MG TAB PO SCH (06:08)
[2018-11-15] MEDS: POTASS/SODIUM PHOSPHATE 1 PKT POWD.PACK PO SCH ×3 (06:09→08:44)
[2018-11-15] MEDS ORDERED: INSULIN GLARGINE 100 UNITS/ML SQ SCH (08:00)
[2018-11-15] MEDS: INSULIN -REGULAR HUMAN 50 UNIT/0.5 ML ML SQ SCH ×2 (08:43→11:50)
[2018-11-15] MEDS: TOPIRAMATE 25 MG TAB PO SCH (08:44)
[2018-11-15] MEDS: ENOXAPARIN 40 MG/0.4 ML SQ SCH (08:45)
[2018-11-15] MEDS ORDERED: LOSARTAN POTASSIUM 50 MG TABLET PO SCH (09:00)
[2018-11-15] MEDS ORDERED: POTASSIUM PHOS IN 0.9 % NACL 15 MMOL/250 ML BAG IV ONE (12:35)
[2018-11-15] MEDS ORDERED: POTASS/SODIUM PHOSPHATE 1 PKT POWD.PACK PO ONE (13:00)
--- NOTE | 2018-11-15 19:55 | P.DS ---
Admission Date: 11/12/18 Discharge Date: 11/15/18 Disposition: ROUTINE DISCHARGE Discharge Condition: GOOD Reason for Admission: weakness , chest pain - Problems (1) DKA (diabetic ketoacidoses) Status: Acute Qualifiers: Diabetes mellitus type: type 2 Diabetes mellitus complication detail: without coma Qualified Code(s): E11.10 - Type 2 diabetes mellitus with ketoacidosis without coma (2) ANA (acute kidney injury) Status: Acute (3) Diabetes Status: Chronic Qualifiers: Diabetes mellitus type: type 2 Diabetes mellitus group home insulin use: without exterminator termite use Diabetes mellitus complication status: with unspecified complications Qualified Code(s): E11.8 - Type 2 diabetes mellitus with unspecified complications (4) HTN (hypertension) Status: Chronic Qualifiers: Hypertension type: essential hypertension Qualified Code(s): I10 - Essential (primary) hypertension (5) Morbid obesity Status: Chronic Brief History of Present Illness: This is a 57-year-old male with past medical history of diet 2 diabetes for more than 10 years along with hypertension who presented to the hospital complaining of having some generalized weakness nausea vomiting that has been getting worse for past couple of days. Patient stated that he has been having mentation along with increased urination and frequency that has gotten progressively worse. Patient has stated that he has stopped taking all his medications for over a month ago and was prescribed a medication for Diabetes farxiga ~1wk ago that he has been taking along NSAIDs for his knee pain. Patient denies having any chest pain shortness of breath or any other associated symptoms at this time. Patient also denies smoking alcohol abuse or any drugs at this time. In the ER patient was found to have DKA and was thus admitted to the hospital for further workup and treatment Hospital Course: Overall during the hospital stay patient remained stable Patient was initially admitted to the hospital for DKA most likely secondary to noncompliance with medication. Patient was kept on insulin drip and had marked improvement in his symptoms. Patient then was switched over to long-acting Levemir. Patient's hemoglobin a 1 was 10.6 here in the hospital and thus was started on Levemir b.i.d. 10 units in the morning and 15 units at night time. Patient was asked to continue checking his sugars 3 times a day and create a Log. Patient was also asked to establish with PCP for his routine checkup of his diabetes. Patient was asked to discontinue taking his metformin and the new diabetic medication as this could be causing his lactic acidosis and worsening his kidney disease. Patient demonstrated understanding and thus was discharged home under stable condition. Patient was given a prescription for losartan along with Lipitor due to hypercholesterolemia and CKD. Patient's VD risk is really high given the obesity, diabetes, CKD and hyperlipidemia Vital Signs/Physical Exam: Temp Pulse Resp BP Pulse Ox 97.0 F 78 20 121/58 L 94 11/15/18 12:00 11/15/18 12:00 11/15/18 12:00 11/15/18 12:00 11/15/18 12:00 General: Alert, In no apparent distress, Obese HEENT: Atraumatic, PERRLA, EOMI Neck: Supple, JVD not distended Respiratory: Clear to auscultation bilaterally, Normal air movement Cardiovascular: Regular rate/rhythm, Normal S1 S2 Gastrointestinal: Normal bowel sounds, No tenderness Musculoskeletal: No tenderness Integumentary: No rashes Neurological: Normal speech, Normal tone, Normal affect Lymphatics: No axilla or inguinal lymphadenopathy Laboratory Data at Discharge: WBC 8.7 K/uL (4.3-10.9) D 11/14/18 05:36 Hgb 14.4 g/dL (13.6-17.9) 11/14/18 05:36 Hct 42.0 % (39.6-49.0) 11/14/18 05:36 Plt Count 199 K/uL (152-406) 11/14/18 05:36 PT 13.0 SECONDS (9.5-12.5) H 11/12/18 11:15 INR 1.10 11/12/18 11:15 Sodium 141 mmol/L (136-145) 11/15/18 04:32 Potassium 3.5 mmol/L (3.5-5.1) 11/15/18 04:32 BUN 10 mg/dL (7-18) 11/15/18 04:32 Creatinine 0.90 mg/dL (0.55-1.3) 11/15/18 04:32 Glucose 195 mg/dL (74-106) H 11/15/18 04:32 Phosphorus 1.6 mg/dL (2.5-4.9) L 11/15/18 04:32 Magnesium 2.5 mg/dL (1.8-2.4) H 11/13/18 05:10 Total Bilirubin 0.5 mg/dL (0.2-1.0) 11/12/18 11:15 AST 20 U/L (15-37) 11/12/18 11:15 ALT 35 U/L (12-78) 11/12/18 11:15 Alkaline Phosphatase 70 U/L (45-117) 11/12/18 11:15 Triglycerides 174 mg/dL (<150) H 11/13/18 05:10 Cholesterol 306 mg/dL (<200) H 11/13/18 05:10 HDL Cholesterol 35 mg/dL (40-60) L 11/13/18 05:10 Cholesterol/HDL Ratio 8.74 11/13/18 05:10 Lipase 175 U/L (73-393) 11/12/18 11:15 Home Medications: Aspirin [Aspir-Low] 81 mg PO DAILY 11/12/18 Carvedilol 25 mg PO DAILY 11/12/18 Doxazosin [Cardura*] 4 mg PO DAILY 11/12/18 Losartan Potassium [Cozaar] 100 mg PO DAILY 11/12/18 Atorvastatin Calcium [Lipitor] 40 mg PO BEDTIME #30 tab 11/15/18 Carvedilol [Coreg*] 25 mg PO [id number] #30 tab 11/15/18 Doxazosin [Cardura*] 4 mg PO BEDTIME #30 tab 11/15/18 Insulin Glargine Human [Lantus] 10 - 15 unit SQ BID #1 ml 11/15/18 New Medications: Atorvastatin Calcium [Lipitor] 40 mg PO BEDTIME #30 tab Carvedilol [Coreg*] 25 mg PO [id number] #30 tab Doxazosin [Cardura*] 4 mg PO BEDTIME #30 tab Insulin Glargine Human [Lantus] 10 - 15 unit SQ BID #1 ml Patient Discharge Instructions: Please f.u with PCP and Bottle Packing Machine Cleaner in 1 to 2 week post discharge. New Medication. Levemir 10units in AM / 15units in PM. Lipitor. ASA. Coreg. Cardura Diet: Regular Activity: Ad babatunde
== END 2018-11-15 12:35 | disposition home or self-care (01) | DRG 638 ==
LOC: ER 10:51 → ERHOLD 12:59 → 3RD-ICU 14:23 → 2ND 11-14 14:08
PROVIDERS: ADMIT Family Medicine; ATTEND Family Medicine
DX: E11.10 Type 2 diabetes mellitus with ketoacidosis without coma (principal); N17.9 Acute kidney failure, unspecified; Z68.43 Body mass index [BMI] 50.0-59.9, adult; E87.4 Mixed disorder of acid-base balance; R11.2 Nausea with vomiting, unspecified; I10 Essential (primary) hypertension; E66.01 Morbid (severe) obesity due to excess calories; T38.3X6A Underdosing of insulin and oral hypoglycemic [antidiabetic] drugs, initial encounter; Z91.128 Patient's intentional underdosing of medication regimen for other reason; Y92.019 Unspecified place in single-family (private) house as the place of occurrence of the external cause; E78.00 Pure hypercholesterolemia, unspecified; E78.5 Hyperlipidemia, unspecified; Z88.0 Allergy status to penicillin; E11.40 Type 2 diabetes mellitus with diabetic neuropathy, unspecified; R63.1 Polydipsia; R35.8 Other polyuria
CPT/HCPCS: 36415; 51702; 71045; 76770; 80048; 80061; 80076; 80320; 81003; 82010; 82435; 82570; 82805; 82962; 83036; 83605; 83690; 83735; 83880; 83930; 84100; 84132; 84145; 84156; 84300; 84484; 85025; 85610; 87040; 93005; 93970; 96372; 96374; 96375; 99285; C9113; J0696; J1650; J2405; J7030

== ENCOUNTER 2021-06-08 17:21 | Emergency (ER) | payer BC ==
--- OUTSIDE RECORDS SUMMARY | 2021-06-08 17:24 | XMS REPORT | Continuity of Care Document ---
:1960 Author Organization [facility] t Address [address] [place] [address] Care Team Providers Name Role Phone Foreign JASSO Attending Clinician Doctor Unassigned, Name Attending Clinician Unavailable Problems Condition Condition Condition Status Onset Resolution Last Treating Co mments Source Name Details Category Date Date Treatment Clinician Date Type 2 Type 2 Problem Active [facility] diabetes Diabetes 3-03 Family mellitus Mellitus 00:00: Practi c without without 00 e complicati Complicati on on Allergies, Adverse Reactions, Alerts This patient has no known allergies or adverse reactions. Social History Smoking Status Start Date Stop Date Source Never Smoker [facility] Medications Ordered Filled Start Stop Current Ordering Indication Dosage Frequency Signature Comments Components Source Medication Medication Date Date Medication? Clinician (SIG) Name Name atorvastati atorvastati No atorvastat [facility] n 40 mg n 40 mg in 40 mg Famil y tablet tablet tablet Practic e carvedilol carvedilol No carvedilol [facility] 25 mg 25 mg 25 mg Family tablet tablet tablet Practic e glimepiride glimepiride No glimepirid [facility] 1 mg tablet 1 mg tablet e 1 mg Family tablet Practic e levothyroxi levothyroxi No levothyrox [facility] ne 50 mcg ne 50 mcg ine 50 mcg Family tablet tablet tablet Practic e losartan losartan No losartan Bret ren 100 mg 100 mg 100 mg Family tablet tablet tablet Practic e metformin metformin No metformin [facility] 1,000 mg 1,000 mg 1,000 mg Fam maureen tablet tablet tablet Practic e Vital Signs Vital Name Observation Time Observation Value Comments Source BP Diastolic 2021-01-11 00:00:00 79 mm[Hg] [facility] Height 2021-01-11 00:00:00 75 [in_i] [facility] BMI (Body Mass 2021-01-11 00:00:00 43.6 kg/m2 [facility]) Practice BP Systolic 2021-01-11 00:00:00 135 mm[Hg] [facility] Body Weight 2021-01-11 00:00:00 349 [lb_av] [facility] Procedures This patient has no known procedures. Plan of Care Planned Activity Planned Date Details Comments Source Diagnostic Test 2021-01-11 glucose, fingerstick, Bret Clifton Pending 00:00:00 blood [code = Practice glucose, fingerstick, blood] Diagnostic Test 2021-01-11 hemoglobin A1C, Nanci brown Pending 00:00:00 fingerstick [code = Practice hemoglobin A1C, fingerstick] Encounters Start End Encounter Admission Attending Care Care Encounter Source Date/Time Date/Time Type Type Clinicians Facility Department ID 2021-01-11 2021-01-11 Jose [facility] - [id number] V illage 00:00:00 00:00:00 [facility] tyra JASSO: [id number] [address] [place] [facility], [address], [place] [address] , Ph. 2020-08-17 2020-08-17 Office Foreign [facility] [id number] 13:57:54 19:01:03 Visit Nayeli Dillon [id number] [place] [id number] Ghada [phone] [facility] [address] [facility] [address] 2020-08-05 2020-08-05 Orders Doctor EMY [id number] 00:00:00 00:00:00 Only Unassigned, MACK [id number] [place] [facility] [id number] Results This patient has no known results.
[2021-06-08 18:08] LABS: Absolute Lymphocytes (CBC) 1.3 K/uL (0.7-4.9); Basophils % 0.9 % (0-1.3); Hematocrit 45.5 % (39.6-49.0); Lymphocytes % 25.5 % (15.3-44.8); RBC Red Blood Cell Count 5.22 M/uL (4.33-5.43)
[2021-06-08 18:22] LABS: Protime INR 1.1
[2021-06-08 18:37] LABS: ALT/SGPT 30 U/L (12-78); AST/SGOT 36 U/L (15-37); Albumin 3.3 g/dL (3.4-5.0); Alkaline Phosphatase 44 U/L (45-117); BUN Blood Urea Nitrogen 14 mg/dL (7-18); Bicarbonate 23 mmol/L (21-32); Bilirubin Direct 0.2 mg/dL (0-0.2); Bilirubin Total 0.4 mg/dL (0.2-1.0); Ferritin 768.2 ng/mL (26-388); Glucose Level 214 mg/dL (74-106); Lipase 153 U/L (73-393); Potassium 3.9 mmol/L (3.5-5.1); Sodium Level 136 mmol/L (136-145); Troponin (Emerg Dept Use Only) 0.02 ng/mL (0.0-0.045)
--- NOTE | 2021-06-08 18:39 | RAD REPORT ---
EXAM DESCRIPTION: RAD - Chest Pa And Lat (2 Views) - 06/08/2021 6:16 pm CLINICAL HISTORY: DYSPNEA COMPARISON: Chest Single View dated 11/12/2018 FINDINGS: Patchy bilateral airspace opacities predominantly in the mid and lower lungs. The heart si ze is within normal limits.No acute osseous abnormality. No significant pleural effusions or pneumoth orax. ACDF the cervical spine for IMPRESSION: Patchy bilateral airspace disease concerning for multifocal pneumonia, including Covid-[address] is pending.
--- NOTE | 2021-06-08 19:30 | EDPHYS ---
Physician Documentation [facility] Name: Christiano Phipps Age: 60 yrs Sex: Male : 1960 Arrival Date: 06/08/2021 Time: 17:25 Bed Waiting Private MD: CHEVY Physician Earnest Kelley HPI: 06/08 19:32 This 60 yrs old Male presents to ER via Wheelchair with complaints of kb Shortness Of Breath - covid+, Cough. 19:33 The patient or guardian reports cough, that is intermittent, described as moderate, kb difficulty breathing, flu symptoms. Onset: The symptoms/episode began/occurred 9 day(s) ago. Severity of symptoms: At their worst the symptoms were moderate, in the emergency department the symptoms are unchanged. Modifying factors: The symptoms are alleviated by nothing, the symptoms are aggravated by nothing. Associated signs and symptoms: Pertinent positives: fever, Pertinent negatives: chest pain, diarrhea, ear ache, nausea, rhinorrhea, sore throat, vomiting. The patient has not experienced similar symptoms in the past. The patient has been recently seen by a physician:. Pt reports he was diagnosed with covid 4 days ago. PCP called out medications yesterday, but he isn't getting any better. Historical: - Allergies: 17:42 PENICILLINS; aa5 - PMHx: 17:42 Diabetes - NIDDM; Hypertension; aa5 - Immunization history:: Client reports having NOT received the Covid vaccine. Pneumococcal vaccine is not up to date, Flu vaccine is not up to date. - Social history:: Smoking status: Patient denies any tobacco usage or history of. ROS: 19:30 Cardiovascular: Negative for chest pain, palpitations, and edema. kb 19:30 Constitutional: Positive for body aches, chills, fatigue, fever, malaise. 19:30 Respiratory: Positive for cough, dyspnea on exertion, shortness of breath. 19:30 All other systems are negative. Exam: 19:30 Constitutional: This is a well developed, well nourished patient who is awake, alert, kb and in no acute distress. Head/Face: Normocephalic, atraumatic. ENT: Moist Mucous membranes Cardiovascular: Regular rate and rhythm with a normal S1 and S2. No gallops, murmurs, or rubs. No pulse deficits. Respiratory: Respirations even and unlabored. No increased work of breathing, no retractions or nasal flaring. Skin: Warm, dry with normal turgor. Normal color. MS/ Extremity: Pulses equal, no cyanosis. Neurovascular intact. Full, normal range of motion. Neuro: Awake and alert, GCS 15, oriented to person, place, time, and situation. Moves all extremities. Normal gait. Psych: Awake, alert, with orientation to person, place and time. Behavior, mood, and affect are within normal limits. Vital Signs: 17:40 BP 187 / 93; Pulse 102; Resp 20 S; Temp 99.4(TE); Pulse Ox 94% on R/A; Weight 158.76 kg aa5 (R); Height 6 ft. 3 in. (190.50 cm) (R); 17:40 Body Mass Index 43.75 (158.76 kg, 190.50 cm) aa5 MDM: 17:45 Patient medically screened. kb 19:28 Data reviewed: vital signs, nurses notes. Data interpreted: Pulse oximetry: on room air kb is 94 %. Interpretation: acceptable. ED course: Pt taken to CT for PE study from [facility]. Pt refused Ct and states he just wants to go home and rest. Pt reports he will return for worsening symptoms. . 06/08 17:44 Order name: BMP 06/08 17:44 Order name: C-Reactive Protein 06/08 17:44 Order name: CBC with Diff 06/08 17:44 Order name: D-Dimer; Complete Time: 18:30 kb 06/08 17:44 Order name: Ferritin; Complete Time: 18:37 kb 06/08 17:44 Order name: LFT's; Complete Time: 18:37 kb 06/08 17:44 Order name: Lactate; Complete Time: 18:30 kb 06/08 17:44 Order name: Lipase; Complete Time: 18:37 kb 06/08 17:44 Order name: PT-INR; Complete Time: 18:30 kb 06/08 17:44 Order name: Procalcitonin; Complete Time: 18:57 kb 06/08 17:44 Order name: Ptt, Activated; Complete Time: 18:30 kb 06/08 17:44 Order name: Troponin (emerg Dept Use Only); Complete Time: 18:37 kb 06/08 17:44 Order name: Basic Metabolic Panel; Complete Time: 18:37 EDMS 06/08 17:44 Order name: C-Reactive Protein; Complete Time: 18:37 EDNY 06/08 17:33 Order name: Chest Pa And Lat (2 Views) XRAY; Complete Time: 18:57 06/08 17:44 Order name: Cardiac monitoring 06/08 17:44 Order name: Droplet/Contact Precautions 06/08 17:44 Order name: EKG - Nurse/Tech 06/08 17:44 Order name: IV Start; Complete Time: 18:02 06/08 17:44 Order name: Labs collected and sent; Complete Time: 18:02 06/08 17:44 Order name: O2 Per Protocol; Complete Time: 18:02 06/08 17:44 Order name: O2 Sat Monitoring; Complete Time: 18:02 06/08 17:44 Order name: CBC with Automated Diff; Complete Time: 18:30 EDMS 06/08 18:57 Order name: Misc. Order: ambulate and check oxygen sat and tolerance kb Administered Medications: No medications were administered Disposition: 06/09 06:28 Co-signature as Attending Physician, Earnest Kelley MD I agree with the assessment and alfred plan of care. Disposition Summary: 06/08/21 19:30 Left Against Medical Advice Location: Home kb Problem: new kb Symptoms: are unchanged kb Condition: Stable kb Diagnosis - Coronavirus infection, unspecified kb Followup: kb - With: Emergency Department - When: As needed - Reason: Worsening of condition Followup: kb - With: Private Physician - When: 2 - 3 days - Reason: Recheck today's complaints, Continuance of care, Re-evaluation by your physician Signatures: Dispatcher [employer] EDMS Radha Nickerson, WORKING FOREMAN-C Earnest Gurrola MD MD cha Calderon, Audri, RN RN aa5 Corrections: (The following items were deleted from the chart) 06/08 19:35 18:28 Chest For PE Angio+CT.RAD.BRZ ordered. EDNY EDMS
--- NOTE | 2021-06-08 19:30 | ER ---
Nurse's Notes [facility] Name: Christiano Phipps Age: 60 yrs Sex: Male : 1960 Arrival Date: 06/08/2021 Time: 17:25 Bed Waiting Private MD: Diagnosis: Coronavirus infection, unspecified Presentation: 06/08 17:40 Chief complaint: Pt's reports difficulty breathing that began 5-6 days ago, fever aa5 on and off, productive cough. Reports positive for COVID-19. Coronavirus screen: Client presents with at least one sign or symptom that may indicate coronavirus-19. Standard/surgical mask placed on the client. Provider contacted for isolation considerations. Client reports previous positive COVID test result. Ebola Screen: Patient negative for fever greater than or equal to 101.5 degrees Fahrenheit, and additional compatible Ebola Virus Disease symptoms. Risk Assessment: Do you want to hurt yourself or someone else? Patient reports no desire to harm self or others. Onset of symptoms was May 2021. 17:40 Method Of Arrival: Wheelchair aa5 17:40 Acuity: BERTHA 3 aa5 20:[address] scan and decided to go home AMA. bb Historical: - Allergies: 17:42 PENICILLINS; aa5 - PMHx: 17:42 Diabetes - NIDDM; Hypertension; aa5 - Immunization history:: Client reports having NOT received the Covid vaccine. Pneumococcal vaccine is not up to date, Flu vaccine is not up to date. - Social history:: Smoking status: Patient denies any tobacco usage or history of. Vital Signs: 17:40 BP 187 / 93; Pulse 102; Resp 20 S; Temp 99.4(TE); Pulse Ox 94% on R/A; Weight 158.76 kg aa5 (R); Height 6 ft. 3 in. (190.50 cm) (R); 17:40 Body Mass Index 43.75 (158.76 kg, 190.50 cm) aa5 ED Course: 17:25 Patient arrived in ED. as 17:33 [facility]erson [facility]C [facility] kb 17:33 Earnest Kelley MD is Attending Physician. kb 17:40 Arm band placed on. aa5 17:42 Triage completed. aa5 17:58 Initial lab(s) drawn, by me, sent to lab. Inserted saline lock: 20 gauge in right aa5 wrist, using aseptic technique. Blood collected. 18:16 Chest Pa And Lat (2 Views) XRAY In Process Unspecified. EDMS Administered Medications: No medications were administered Outcome: 20:18 Patient left the ED. bb Signatures: Dispatcher [employer] EDMS Radha Nickerson, ADAIR-Fatoumata BORRERO-Nohemy Jeffery Brenda, RN RN bb Beatriz Morales, RN RN aa5
[2021-06-09 01:32] VITALS: BP 187/93; TEMP 99.4; O2SAT 94
== END 2021-06-08 20:18 | disposition left against medical advice (07) ==
LOC: ER 17:21
DX: U07.1 COVID-19 (principal); I10 Essential (primary) hypertension; Z88.0 Allergy status to penicillin
CPT/HCPCS: 36415; 71046; 80048; 80076; 82728; 83605; 83690; 84145; 84484; 85025; 85379; 85610; 85730; 86140; 99283

== ENCOUNTER 2021-06-11 15:38 | Inpatient (IN) | payer BC ==
--- OUTSIDE RECORDS SUMMARY | 2021-06-11 15:41 | XMS REPORT | Continuity of Care Document ---
:1960 Author Organization [facility] t Address [address] [place] [address] Care Team Providers Name Role Phone Foreign JASSO Attending Clinician Doctor Unassigned, Name Attending Clinician Unavailable Problems Condition Condition Condition Status Onset Resolution Last Treating Co mments Source Name Details Category Date Date Treatment Clinician Date Type 2 Type 2 Problem Active [facility] diabetes Diabetes 3-03 Family mellitus Mellitus 00:00: Practi c without without 00 e complicati Complicati on on Allergies, Adverse Reactions, Alerts This patient has no known allergies or adverse reactions. Social History Smoking Status Start Date Stop Date Source Never Smoker [facility] Family P ractice Medications Ordered Filled Start Stop Current Ordering Indication Dosage Frequency Signature Comments Components Source Medication Medication Date Date Medication? Clinician (SIG) Name Name atorvastati atorvastati No atorvastat [facility] n 40 mg n 40 mg in 40 mg Famil y tablet tablet tablet Practic e carvedilol carvedilol No carvedilol [facility] 25 mg 25 mg 25 mg Family tablet tablet tablet Practic e glimepiride glimepiride No glimepirid [facility] 1 mg tablet 1 mg tablet e 1 mg Family tablet Practic e levothyroxi levothyroxi No levothyrox [facility] ne 50 mcg ne 50 mcg ine 50 mcg Family tablet tablet tablet Practic e losartan losartan No losartan Bret ren 100 mg 100 mg 100 mg Family tablet tablet tablet Practic e metformin metformin No metformin [facility] 1,000 mg 1,000 mg 1,000 mg Fam maureen tablet tablet tablet Practic e Vital Signs Vital Name Observation Time Observation Value Comments Source BP Diastolic 2021-01-11 00:00:00 79 mm[Hg] [facility] Height 2021-01-11 00:00:00 75 [in_i] [facility] BMI (Body Mass 2021-01-11 00:00:00 43.6 kg/m2 [facility]) Practice BP Systolic 2021-01-11 00:00:00 135 mm[Hg] [facility] Body Weight 2021-01-11 00:00:00 349 [lb_av] [facility] Procedures This patient has no [...] Clinicians Facility Department ID 2021-01-11 2021-01-11 Jose [facility] [place] - [id number] V illage 00:00:00 00:00:00 Antony [facility] - Practi tyra JASSO: [id number] [address], [address], [place] [address] , Ph. 2020-08-17 2020-08-17 Office CORY Carrasquillo [id number] 13:57:54 19:01:03 Visit Nayeli Dillon [id number] [place] [id number] Ghada [phone] [facility] 220 [facility] 2020-08-05 2020-08-05 Orders Doctor EMY [id number] 00:00:00 00:00:00 Only Unassigned, MACK [id number] [place] [facility] [id number] Results This patient has no known results.
[2021-06-11] MEDS ORDERED: METHYLPREDNISOLONE 125 MG INJ ONE (16:33)
[2021-06-11] MEDS ORDERED: LORazepam 2 MG/ML VIAL ONE (16:35)
[2021-06-11 16:46] LABS: Absolute Lymphocytes (CBC) 1.5 K/uL (0.7-4.9); Basophils % 0.7 % (0-1.3); Hematocrit 43.2 % (39.6-49.0); Lymphocytes % 18.6 % (15.3-44.8); MPV 7.9 fL (7.6-11.3); RBC Red Blood Cell Count 4.98 M/uL (4.33-5.43)
[2021-06-11 16:48] LABS: Protime INR 1.09
--- NOTE | 2021-06-11 17:14 | ER ---
Nurse's Notes [facility] Name: Christiano Phipps Age: 60 yrs Sex: Male : 1960 Arrival Date: 06/11/2021 Time: 15:45 Bed 17 Private MD: Diagnosis: Coronavirus infection, unspecified;Viral pneumonia, unspecified;Hypoxia Presentation: 06/11 15:46 Chief complaint: EMS states: SHORTNESS OF BREATH AFTER DX WITH COVID PNEUMONIA. bp Coronavirus screen: Client reports previous positive COVID test result. Ebola Screen: No symptoms or risks identified at this time. Initial Sepsis Screen: Does the patient meet any 2 criteria? No. Patient's initial sepsis screen is negative. Does the patient have a suspected source of infection? Yes: Productive cough/pneumonia. Risk Assessment: Do you want to hurt yourself or someone else? Patient reports no desire to harm self or others. Onset of symptoms is unknown. 15:46 Method Of Arrival: EMS: [facility] bp 15:46 Acuity: BERTHA 3 bp Triage Assessment: 15:48 General: Appears distressed, uncomfortable, obese, Behavior is cooperative, appropriate bp for age, anxious. Pain: Denies pain. EENT: No deficits noted. Neuro: Level of Consciousness is awake, alert, obeys commands. Cardiovascular: No deficits noted. Respiratory: Reports shortness of breath at rest Onset: The symptoms/episode began/occurred at an unknown time. the patient has moderate shortness of breath. GI: No signs and/or symptoms were reported involving the gastrointestinal system. : No signs and/or symptoms were reported regarding the genitourinary system. Derm: No deficits noted. Musculoskeletal: No deficits noted. Historical: - Allergies: 15:48 PENICILLINS; bp - Home Meds: 15:48 aspirin 81 mg Oral TbEC 1 tab once daily [Active]; carvedilol 25 mg Oral tab 1 tab bp daily [Active]; doxazosin 4 mg Oral tab 1 tab once daily [Active]; Farxiga 5 mg Oral tab 1 tab once daily [Active]; losartan 100 mg Oral tab 1 tab once daily [Active]; metformin 1,000 mg Oral tab 1 tab 2 times per day [Active]; - PMHx: 15:48 Diabetes - NIDDM; Hypertension; bp - Immunization history:: Adult Immunizations up to date. - Social history:: Smoking status: Patient denies any tobacco usage or history of. Screenin:54 Abuse screen: Denies threats or abuse. Denies injuries from another. Nutritional bp screening: No deficits noted. Tuberculosis screening: No symptoms or risk factors identified. Fall Risk None identified. Assessment: 15:51 General: SEE TRIAGE NOTE. Neuro: Level of Consciousness is awake, alert, obeys bp commands, Electrician Sound are equal bilaterally. Cardiovascular: Rhythm is sinus rhythm. Respiratory: Airway is patent Respiratory effort is labored, Breath sounds are diminished bilaterally. GI: No signs and/or symptoms were reported involving the gastrointestinal system. : EENT: No deficits noted. 17:00 Reassessment: PT RETURNED FROM CT. bp 18:00 Reassessment: No changes from previously documented assessment. Patient and/or family bp updated on plan of care and expected duration. Pain level reassessed. Patient is alert, oriented x 3, equal unlabored respirations, skin warm/dry/pink. ADMIT INITATED. Vital Signs: 15:46 Temp 97.6; Pulse Ox 83% on R/A; bp 16:00 BP 155 / 87; Pulse 96; Resp 16; Pulse Ox 96% ; bp 17:00 BP 158 / 80; Pulse 88; Resp 17; Pulse Ox 95% ; bp 18:00 BP 177 / 84; Pulse 93; Resp 17; Pulse Ox 95% ; bp ED Course: 15:45 Patient arrived in ED. bp 15:47 Triage completed. bp 15:48 Arm band placed on. bp 15:54 Patient has correct armband on for positive identification. Bed in low position. Call bp light in reach. Side rails up X2. 15:59 Radha Nickerson FNP-C is PHCP. kb 15:59 Skyler Cabrera MD is Attending Physician. kb 16:09 Steve Spencer, INO is Primary Nurse. bp 16:30 Inserted saline lock: 20 gauge in right forearm, using aseptic technique. Blood bp collected. 16:54 CT Chest For PE Angio In Process Unspecified. EDMS 17:13 Javi Gusman MD is Hospitalizing Provider. kb 19:30 Primary Nurse role handed off by Steve Spencer, RN mw2 19:30 Steve Spencer, INO is Primary Nurse. bp 19:31 No provider procedures requiring assistance completed. Patient admitted, IV remains in em place. Administered Medications: 16:30 Drug: SOLU-Medrol (methylPrednisoLONE) 125 mg Route: IVP; Site: right forearm; bp 18:46 Follow up: Response: No adverse reaction bp 16:30 Drug: Ativan (LORazepam) 0.5 mg Route: IVP; Site: right forearm; bp 18:45 Follow up: Response: No adverse reaction bp 19:59 Drug: Tylenol 1000 mg Route: PO; em Outcome: 17:13 Decision to Hospitalize by Provider. 06/12 16:26 Patient left the ED. iw Signatures: Dispatcher [employer] EDRadha Dumont, ADAIR-Fatoumata BORRERO-Dm Gonzales RN RN Johana Jose RN RN iw Peltier, Brian, RN RN Ingrid Driscoll mw2
--- NOTE | 2021-06-11 17:14 | EDPHYS ---
Physician Documentation [facility] Name: Christiano Phipps Age: 60 yrs Sex: Male : 1960 Arrival Date: 06/11/2021 Time: 15:45 Bed 17 Private MD: ED Physician Skyler Cabrera HPI: 06/11 16:55 This 60 yrs old Male presents to ER via EMS with complaints of Shortness Of kb Breath. 16:55 The patient has shortness of breath at rest. Duration: The symptoms are continuous. The kb patient has not experienced similar symptoms in the past. The patient has been recently seen at the [facility], last week, for similar complaints labs were performed, X-rays were performed. 16:56 Onset: The symptoms/episode began/occurred 8 day(s) ago. The patient's shortness of kb breath is aggravated by exertion, is alleviated by nothing. Associated signs and symptoms: Pertinent positives: non-productive cough. Severity of symptoms: At their worst the symptoms were moderate severe in the emergency department the symptoms have improved mildly. Patient was diagnosed with Covid 8 days ago. Came in 4 days ago for persistent symptoms. Labs and x-ray completed at that time but patient was unable to tolerate CT scan due to anxiety. Patient left AMA because he wanted to go home and rest. O2 sat at that time remained at 94 to 95% on room air. Patient was educated to return for oxygen saturation less than 90%. Patient reports his O2 sat has maintained 92% over the last couple of days but this morning he woke up with a sat of 76%. States it went up to 83 to 84% after he got moving around and stayed there for the rest of the day until EMS arrived.. Historical: - Allergies: 15:48 PENICILLINS; bp - Home Meds: 15:48 aspirin 81 mg Oral TbEC 1 tab once daily [Active]; carvedilol 25 mg Oral tab 1 tab bp daily [Active]; doxazosin 4 mg Oral tab 1 tab once daily [Active]; Farxiga 5 mg Oral tab 1 tab once daily [Active]; losartan 100 mg Oral tab 1 tab once daily [Active]; metformin 1,000 mg Oral tab 1 tab 2 times per day [Active]; - PMHx: 15:48 Diabetes - NIDDM; Hypertension; bp - Immunization history:: Adult Immunizations up to date. - Social history:: Smoking status: Patient denies any tobacco usage or history of. ROS: 17:06 Cardiovascular: Negative for chest pain, palpitations, and edema. kb 17:06 Constitutional: Positive for fever, malaise. 17:06 Respiratory: Positive for cough, dyspnea on exertion, shortness of breath, Negative for hemoptysis, orthopnea, pleurisy, wheezing. 17:06 All other systems are negative. Exam: 17:06 Constitutional: This is a well developed, well nourished patient who is awake, alert, kb and in no acute distress. Head/Face: Normocephalic, atraumatic. ENT: Moist Mucous membranes Cardiovascular: Regular rate and rhythm with a normal S1 and S2. No gallops, murmurs, or rubs. No pulse deficits. Abdomen/GI: Soft, non-tender. No distention Skin: Warm, dry with normal turgor. Normal color. MS/ Extremity: Pulses equal, no cyanosis. Neurovascular intact. Full, normal range of motion. Neuro: Awake and alert, GCS 15, oriented to person, place, time, and situation. Moves all extremities. Normal gait. Psych: Awake, alert, with orientation to person, place and time. Behavior, mood, and affect are within normal limits. 17:06 Respiratory: mild respiratory distress is noted, Respirations: labored breathing, that is mild, Breath sounds: are clear throughout. Vital Signs: 15:46 Temp 97.6; Pulse Ox 83% on R/A; bp 16:00 BP 155 / 87; Pulse 96; Resp 16; Pulse Ox 96% ; bp 17:00 BP 158 / 80; Pulse 88; Resp 17; Pulse Ox 95% ; bp 18:00 BP 177 / 84; Pulse 93; Resp 17; Pulse Ox 95% ; bp MDM: 15:59 Patient medically screened. kb 16:16 ED course: , Odette, . kb 16:50 Data reviewed: vital signs, nurses notes. Data interpreted: Pulse oximetry: on room air kb is 83 %. Interpretation: hypoxia. Plan: O2 by NC applied. Counseling: I had a detailed discussion with the patient and/or guardian regarding: the historical points, exam findings, and any diagnostic results supporting the discharge/admit diagnosis, lab results, radiology results, the need for further work-up and treatment in the hospital. 17:06 Physician consultation: Javi Gusman MD was contacted at 17:06, regarding admission, kb and will see patient in ED, shortly. 17:22 ED course: Pt appears comfortable sitting in wheelchair with O2 via NC. O2 sat 94%. kb 06/11 16:00 Order name: BMP kb 06/11 16:00 Order name: C-Reactive Protein kb 06/11 16:00 Order name: CBC with Diff; Complete Time: 17:02 kb 06/11 16:00 Order name: D-Dimer; Complete Time: 17:02 kb 06/11 16:00 Order name: Ferritin kb 06/11 16:00 Order name: LFT's kb 06/11 16:00 Order name: Lactate; Complete Time: 17:05 kb 06/11 16:00 Order name: Lipase kb 06/11 16:00 Order name: PT-INR; Complete Time: 17:02 kb 06/11 16:00 Order name: Procalcitonin kb 06/11 16:00 Order name: Ptt, Activated; Complete Time: 17:02 kb 06/11 16:00 Order name: Troponin (emerg Dept Use Only) kb 06/11 19:02 Order name: SARS-COV-2 RT PCR EDNM 06/11 16:00 Order name: CT Chest For PE Angio; Complete Time: 17:20 kb 06/11 19:02 Order name: C-Reactive Protein EDMS 06/11 19:02 Order name: C-Reactive Protein EDMS 06/11 19:02 Order name: Comprehensive Metabolic Panel EDMS 06/11 19:02 Order name: Comprehensive Metabolic Panel EDMS 06/11 19:02 Order name: Ferritin EDMS 06/11 19:02 Order name: Ferritin EDMS 06/11 19:02 Order name: Lipid Profile EDMS 06/11 19:02 Order name: Lipid Profile EDMS 06/11 19:03 Order name: CBC with Automated Diff EDMS 06/11 19:03 Order name: CBC with Automated Diff EDMS 06/11 19:04 Order name: Hemoglobin A1c EDMS 06/11 19:51 Order name: Lactate Sepsis 2 HR Follow-up EDMS 06/11 21:46 Order name: Glucose, Ancillary Testing EDMS 06/12 09:00 Order name: Glucose, Ancillary Testing EDNM 06/12 12:58 Order name: Glucose, Ancillary Testing EDNM 06/11 16:00 Order name: EKG; Complete Time: 16:01 kb 06/11 16:00 Order name: Cardiac monitoring; Complete Time: 16:36 kb 06/11 16:00 Order name: Droplet/Contact Precautions; Complete Time: 16:36 kb 06/11 16:00 Order name: EKG - Nurse/Tech; Complete Time: 21:30 kb 06/11 16:00 Order name: IV Start; Complete Time: 16:36 kb 06/11 16:00 Order name: Labs collected and sent; Complete Time: 16:36 kb 06/11 16:00 Order name: O2 Per Protocol; Complete Time: 16:36 kb 06/11 16:00 Order name: O2 Sat Monitoring; Complete Time: 16:36 kb 06/11 19:03 Order name: CONS Physician Consult EDNM 06/11 19:03 Order name: Regular EDNM Administered Medications: 16:30 Drug: SOLU-Medrol (methylPrednisoLONE) 125 mg Route: IVP; Site: right forearm; bp 18:46 Follow up: Response: No adverse reaction bp 16:30 Drug: Ativan (LORazepam) 0.5 mg Route: IVP; Site: right forearm; bp 18:45 Follow up: Response: No adverse reaction bp 19:59 Drug: Tylenol 1000 mg Route: PO; em Disposition Summary: 06/11/21 17:13 Hospitalization Ordered Hospitalization Status: Inpatient Admission kb Provider: Javi Gusman Condition: Stable kb Problem: new kb Symptoms: are unchanged kb Bed/Room Type: Standard Location: Telemetry/MedSurg (Inpatient)(06/12/21 15:39) bd Room Assignment: 407(06/12/21 15:39) bd Diagnosis - Coronavirus infection, unspecified kb - Viral pneumonia, unspecified kb - Hypoxia kb Forms: - Medication Reconciliation Form kb - SBAR form kb Addendum: 06/19/2021 07:04 Co-signature as Attending Physician, Skyler Cabrera MD I agree with the assessment and r n plan of care. Attestation: The patient's history, exam findings, diagnostics, and a summary of any interventions or procedures was reviewed in detail with Radha JIM. Signatures: Dispatcher [employer] [facility] Radha Nikcerson, [employer]-C [employer]-Ckb CarrieSeleneDarlene bd Miriam Paul, RN RN Dm Alfaro, RN RN Skyler Weems MD MD rn Peltier, Brian, RN RN bp Corrections: (The following items were deleted from the chart) 06/11 18:17 16:31 CORONAVIRUS+MR.LAB.BRZ ordered. [facility] 19:51 17:13 Telemetry/MedSurg (Inpatient) kb 19:51 17:13 kb mw 06/12 15:39 06/11 19:51 BR ER HOLD mw bd 06/12 15:39 06/11 19:51 ERHOLD- [facility]
--- NOTE | 2021-06-11 17:15 | RAD REPORT ---
EXAM DESCRIPTION: CT - Chest For Pe Angio - 06/11/2021 4:54 pm CLINICAL HISTORY: Chest pain. DYSPNEA COMPARISON: No comparisons TECHNIQUE: CT angiogram of the pulmonary arteries was performed with MIP. All CT scans are performed using dose optimization technique as appropriate and may include automated exposure control or mA/KV adjustment according to patient size. FINDINGS: No evidence of pulmonary thromboembolism. No acute aortic finding demonstrated. Moderate extensive ground-glass opacity is present throughout both lungs greatest along the periphery . This is most compatible with COVID-19 infection. No significant pericardial or pleural fluid. Mild lymphadenopathy is present in the mediastinum. No concerning bony finding. IMPRESSION: No evidence of pulmonary thromboembolism. Moderate ground-glass opacity bilaterally particularly along periphery of both lungs most compatible with COVID-19 infection.
[2021-06-11 17:47] LABS: ALT/SGPT 29 U/L (12-78); AST/SGOT 44 U/L (15-37); Alkaline Phosphatase 47 U/L (45-117); BUN Blood Urea Nitrogen 17 mg/dL (7-18); Bicarbonate 28 mmol/L (21-32); Bilirubin Direct 0.3 mg/dL (0-0.2); Bilirubin Total 0.6 mg/dL (0.2-1.0); Ferritin 952.6 ng/mL (26-388); Glucose Level 252 mg/dL (74-106); Lipase 191 U/L (73-393); Potassium 3.5 mmol/L (3.5-5.1); Protein, Total 7.9 g/dL (6.4-8.2); Sodium Level 135 mmol/L (136-145); Troponin (Emerg Dept Use Only) < 0.02 ng/mL (0.0-0.045)
[2021-06-11] MEDS ORDERED: IPRATROPIUM BROM 0.5MG/2.5ML NEB PRN (18:58)
[2021-06-11] MEDS ORDERED: ONDANSETRON 4 MG/2 ML VIAL IV PRN (18:58)
[2021-06-11] MEDS ORDERED: ALBUTEROL 2.5 MG/3 ML NEB SOL NEB PRN (18:58)
[2021-06-11] MEDS ORDERED: NA CHLORIDE 0.9% 1,000 ML IV SCH (19:00)
[2021-06-11] MEDS ORDERED: ACETAMINOPHEN 500 MG TAB ONE (20:20)
[2021-06-11] MEDS ORDERED: GLUCAGON 1 MG/VIAL IM PRN (20:39)
[2021-06-11] MEDS ORDERED: D50W 25 GM/50 ML SYRINGE IV PRN (20:39)
--- NOTE | 2021-06-11 20:41 | P.HP ---
Certification for Inpatient Patient admitted to: Inpatient With expected LOS: >2 Midnights Patient will require the following post-hospital care: None Practitioner: I am a practitioner with admitting privileges, knowledge of patient current condition, hospital course, and medical plan of care. Services: Services provided to patient in accordance with Admission requirements found in Title 42 Section 412.3 of the Code of Federal Regulations Patient History Date of Service: 06/11/21 Reason for admission: Hypoxemia History of Present Illness: Patient is a 60-year-old gentleman who came to the hospital with shortness of breath. Patient was diagnose with coated about 4-5 days ago. He was actually in our emergency room and he maintained his oxygen saturation around 90%. A CT of the chest was going to be ordered but patient refused because he was claustrophobic. Nurse practitioner offered Ativan but he signed out against medical advice. He comes back and with his room air oxygen saturations at 79% at home. In the emergency room he was in the low 80s. He was started on 6 L of oxygen by nasal cannula as he does not want anything over his face. His oxygen saturations are in the mid 90s at this time. Patient will be admitted to the hospital with COVID-19 pneumonia. Patient will be started on inhaler therapy and cough medication as well as IV steroids. Will also start ivermectin. Is C reactive protein is elevated also needs baricitinib Allergies Penicillins Allergy (Verified 11/12/18 15:11) unknown Home Medications: Aspirin [Aspir-Low] 81 mg PO DAILY 11/12/18 Doxazosin [Cardura*] 4 mg PO DAILY 11/12/18 Losartan Potassium [Cozaar] 100 mg PO DAILY 11/12/18 carvediloL [Carvedilol] 25 mg PO DAILY 11/12/18 Atorvastatin Calcium [Lipitor] 40 mg PO BEDTIME #30 tab 11/15/18 Doxazosin [Cardura*] 4 mg PO BEDTIME #30 tab 11/15/18 Insulin Glargine Human [Lantus] 10 - 15 unit SQ BID #1 ml 11/15/18 carvediloL [Coreg*] 25 mg PO [id number] #30 tab 11/15/18 - Past Medical/Surgical History Diabetic: Yes -: HTN -: DM -: Back-fused 5&6&7 -: elbow -: knee - Family History Mother Medical History: Hypertension, Diabetes, Cancer Notes: Bile duct CA - Social History Alcohol use: Yes CD- Drugs: No Caffeine use: Yes Review of Systems 10-point ROS is otherwise unremarkable Physical Examination - Vital Signs Temperature: 98 F Blood Pressure: 130/80 Pulse: 80 Respirations: 18 Pulse Ox (%): 95 - Physical Exam General: Alert, In no apparent distress, Oriented x3, Moderate distress, Obese HEENT: Atraumatic, PERRLA, Mucous membr. moist/pink, EOMI, Sclerae nonicteric Neck: Supple, 2+ carotid pulse no bruit, No LAD, Without JVD or thyroid abnormality Respiratory: Diminished Cardiovascular: Regular rate/rhythm, Normal S1 S2, No murmurs Gastrointestinal: Normal bowel sounds, Soft and benign, Non-distended, No tenderness Musculoskeletal: No clubbing, No swelling, No tenderness Integumentary: No rashes Neurological: Normal gait, Normal speech, Normal strength at 5/5 x4 extr, Normal tone, Sensation intact, Cranial nerves 3-12 intact, Normal affect Lymphatics: No axilla or inguinal lymphadenopathy - Studies Laboratory Data (last 24 hrs) 06/11/21 16:30: PT 12.5, INR 1.09, APTT 25.4 06/11/21 16:30: WBC 7.80 D, Hgb 14.7, Hct 43.2, Plt Count 256 D 06/11/21 16:30: Sodium 135 L, Potassium 3.5, BUN 17, Creatinine 0.76, Glucose 252 H, Total Bilirubin 0.6, AST 44 H, ALT 29, Alkaline Phosphatase 47, Lipase 191 Assessment & Plan - Problems (Diagnosis) (1) Pneumonia due to COVID-19 virus Current Visit: Yes Status: Acute (2) Hypoxemia Current Visit: Yes Status: Acute (3) Diabetes Current Visit: No Status: Chronic (4) HTN (hypertension) Current Visit: No Status: Chronic (5) Morbid obesity Current Visit: No Status: Chronic - Plan 1. Continue with IV steroids 2. Monitor inflammatory markers 3. Repeat chest x-ray if symptoms are progressively worsening 4. O2 per protocol 5. Pulmonary consultation 6. Continue with albuterol inhaler therapy; also supportive care 7. Monitor LFTs 8. Strict blood sugar control 9. Monitor hemodynamics closely 10. GI and DVT prophylaxis Discharge Plan: Home Plan to discharge in: Greater than 2 days - Advance Directives Does patient have a Living Will: No Does patient have a Durable POA for Healthcare: No - Code Status/Comfort Care Code Status Assessed: Yes Code Status: Full Code Critical Care: No Time Spent Managing PTS Care (In Minutes): 45
[2021-06-11 20:54] VITALS: BMI 41.1
[2021-06-11] MEDS: APIXABAN 5 MG TABLET PO SCH (21:00)
[2021-06-11] MEDS ORDERED: DOXAZOSIN 4 MG TAB PO SCH (21:00)
[2021-06-11] MEDS: ATORVASTATIN 40 MG TAB PO SCH (21:00)
[2021-06-11] MEDS ORDERED: INSULIN GLARGINE 100 UNITS/ML SQ SCH (21:00)
[2021-06-11] MEDS ORDERED: APIXABAN 5 MG TABLET ONE (22:07)
[2021-06-11] MEDS ORDERED: INSULIN GLARGINE 100 UNITS/ML SQ ONE (22:07)
[2021-06-11] MEDS ORDERED: ATORVASTATIN 20 MG TAB ONE (22:07)
[2021-06-11] MEDS ORDERED: DOXAZOSIN 2 MG TAB ONE (22:39)
[2021-06-12 03:19] LABS: Absolute Lymphocytes (CBC) 1.1 K/uL (0.7-4.9); Basophils % 0.3 % (0-1.3); Hematocrit 42.7 % (39.6-49.0); MPV 7.9 fL (7.6-11.3); RBC Red Blood Cell Count 4.85 M/uL (4.33-5.43)
[2021-06-12 03:35] LABS: Albumin 2.8 g/dL (3.4-5.0); Bilirubin Total 0.6 mg/dL (0.2-1.0); Ferritin 919.9 ng/mL (26-388); Potassium 4.6 mmol/L (3.5-5.1); Protein, Total 7.8 g/dL (6.4-8.2)
[2021-06-12] MEDS ORDERED: ASPIRIN EC 81 MG TAB PO ONE (08:48)
[2021-06-12] MEDS ORDERED: ZINC SULFATE 220 MG CAP ONE (08:48)
[2021-06-12] MEDS ORDERED: INSULIN GLARGINE 100 UNITS/ML SQ ONE (08:48)
[2021-06-12] MEDS ORDERED: THIAMINE HCL 100 MG TABLET ONE (08:48)
[2021-06-12] MEDS ORDERED: VITAMIN D 1000 UNIT TAB ONE (08:49)
[2021-06-12] MEDS ORDERED: APIXABAN 5 MG TABLET ONE (08:49)
[2021-06-12] MEDS ORDERED: ASCORBIC ACID 500 MG TABLET ONE (08:49)
[2021-06-12] MEDS ORDERED: METHYLPREDNISOLONE 40 MG INJ ONE (08:49)
[2021-06-12] MEDS: METHYLPREDNISOLONE 40 MG INJ IV SCH ×2 (09:00→19:46)
[2021-06-12] MEDS: ASPIRIN EC 81 MG TAB PO SCH (09:00)
[2021-06-12] MEDS: IVERMECTIN 3 MG TABLET PO SCH (09:00)
[2021-06-12] MEDS: APIXABAN 5 MG TABLET PO SCH ×2 (09:00→19:47)
[2021-06-12] MEDS: INSULIN GLARGINE 100 UNITS/ML SQ SCH ×2 (09:00→19:47)
[2021-06-12] MEDS: VITAMIN D 1000 UNIT TAB PO SCH (09:00)
[2021-06-12] MEDS: THIAMINE HCL 100 MG TABLET PO SCH ×2 (09:00→19:47)
[2021-06-12] MEDS: ZINC SULFATE 220 MG CAP PO SCH (09:00)
[2021-06-12] MEDS: BARICITINIB 2 MG TABLET PO SCH (09:00)
[2021-06-12] MEDS: ASCORBIC ACID 500 MG TABLET PO SCH ×4 (09:00→19:48)
--- NOTE | 2021-06-12 16:48 | P.PN ---
Subjective Date of Service: 06/12/21 Chief Complaint: Hypoxemia Subjective: Improving (Currently on high flow oxygen), Doing well Physical Examination - Vital Signs Temperature: 98.5 F Blood Pressure: 130/88 Pulse: 67 Respirations: 22 Pulse Ox (%): 94 - Studies Laboratory Data (last 24 hrs) 06/11/21 16:30: PT 12.5, INR 1.09, APTT 25.4 06/11/21 16:30: WBC 7.80 D, Hgb 14.7, Hct 43.2, Plt Count 256 D 06/11/21 16:30: Sodium 135 L, Potassium 3.5, BUN 17, Creatinine 0.76, Glucose 252 H, Total Bilirubin 0.6, AST 44 H, ALT 29, Alkaline Phosphatase 47, Lipase 191 Assessment & Plan Discharge Plan: Home Plan to discharge in: Greater than 2 days Physician Review Additional Text: Covid: Positive CT chest: FINDINGS: No evidence of pulmonary thromboembolism. No acute aortic finding demonstrated. Moderate extensive ground-glass opacity is present throughout both lungs greatest along the periphery. This is most compatible with COVID-19 infection. No significant pericardial or pleural fluid. Mild lymphadenopathy is present in the mediastinum. No concerning bony finding. IMPRESSION: No evidence of pulmonary thromboembolism. Moderate ground-glass opacity bilaterally particularly along periphery of both lungs most compatible with COVID-19 infection. Physical exam: General: Alert, In no apparent distress, Oriented x3, Moderate distress, Obese HEENT: Atraumatic, PERRLA, Mucous membr. moist/pink, EOMI, Sclerae nonicteric Neck: Supple, 2+ carotid pulse no bruit, No LAD, Without JVD or thyroid abnormality Respiratory: Diminished patient currently on high flow at 100% Cardiovascular: Regular rate/rhythm, Normal S1 S2, No murmurs Gastrointestinal: Normal bowel sounds, Soft and benign, Non-distended, No tenderness Musculoskeletal: No clubbing, No swelling, No tenderness Integumentary: No rashes Neurological: Normal gait, Normal speech, Normal strength at 5/5 x4 extr, Normal tone, Sensation intact, Cranial nerves 3-12 intact, Normal affect Lymphatics: No axilla or inguinal lymphadenopathy Impression: Acute respiratory failure with hypoxia secondary to bilateral COVID-19 pneumonia, unvaccinated Diabetes mellitus type 2 with hyperglycemia Hypertension Hyperlipidemia BPH Obesity, BMI 41.1 Plan: Acute respiratory failure with hypoxia secondary to bilateral COVID-19 pneumonia, unvaccinated: Continue with IV Solu-Medrol, vitamin supplementation. Will also start baricitinib. Monitor chest x-ray. Will monitor labferritin and CRP. DVT prophylaxis in placeEliquis. Await recommendations by pulmonology. Diabetes mellitus type 2 with hyperglycemia: Increase Lantus for better control. Will continue to monitor and adjust appropriately. Accu-Cheks in place. Hypertension: Restart carvedilol and losartan. Will adjust dose accordingly. Hyperlipidemia: Restart Lipitor. BPH: Restart Cardura. Obesity, BMI 41.1: Will address lifestyle modification education. DVT prophylaxis: Eliquis CODE STATUS: Full code Advanced care [id number] minutes: Home at discharge Time Spent Managing Pts Care (In Minutes): 55
[2021-06-12] MEDS: carvediloL 12.5 MG TAB PO SCH (17:13)
[2021-06-12] MEDS: DOXAZOSIN 2 MG TAB PO SCH (19:46)
[2021-06-12] MEDS: ATORVASTATIN 40 MG TAB PO SCH (19:48)
[2021-06-12] MEDS: ACETAMINOPHEN 500 MG TAB PO PRN (20:04)
[2021-06-13 04:32] LABS: Absolute Lymphocytes (CBC) 1.3 K/uL (0.7-4.9); Basophils % 0.3 % (0-1.3); Hematocrit 39.5 % (39.6-49.0); MPV 7.7 fL (7.6-11.3)
[2021-06-13 05:10] LABS: ALT/SGPT 30 U/L (12-78); AST/SGOT 34 U/L (15-37); Albumin 2.8 g/dL (3.4-5.0); Alkaline Phosphatase 48 U/L (45-117); BUN Blood Urea Nitrogen 29 mg/dL (7-18); Bicarbonate 28 mmol/L (21-32); Bilirubin Total 0.6 mg/dL (0.2-1.0); Ferritin 745.4 ng/mL (26-388); Glucose Level 327 mg/dL (74-106); Magnesium 2.5 mg/dL (1.8-2.4); Potassium 4.3 mmol/L (3.5-5.1); Protein, Total 7.3 g/dL (6.4-8.2); Sodium Level 136 mmol/L (136-145)
[2021-06-13] MEDS: carvediloL 12.5 MG TAB PO SCH ×2 (05:32→17:15)
--- NOTE | 2021-06-13 06:17 | P.PN ---
Subjective Date of Service: 06/13/21 Chief Complaint: Hypoxemia Subjective: Other (Patient currently on high flow 90%) Physical Examination - Vital Signs Temperature: 98.6 F Blood Pressure: 183/72 Pulse: 84 Respirations: 20 Pulse Ox (%): 90 Assessment & Plan Discharge Plan: Home Plan to discharge in: Greater than 2 days Physician Review Additional Text: Covid: Positive CT chest: FINDINGS: No evidence of pulmonary thromboembolism. No acute aortic finding demonstrated. Moderate extensive ground-glass opacity is present throughout both lungs greatest along the periphery. This is most compatible with COVID-19 infection. No significant pericardial or pleural fluid. Mild lymphadenopathy is present in the mediastinum. No concerning bony finding. IMPRESSION: No evidence of pulmonary thromboembolism. Moderate ground-glass opacity bilaterally particularly along periphery of both lungs most compatible with COVID-19 infection. Physical exam: General: Alert, In no apparent distress, Oriented x3, Moderate distress, Obese HEENT: Atraumatic, PERRLA, Mucous membr. moist/pink, EOMI, Sclerae nonicteric Neck: Supple, 2+ carotid pulse no bruit, No LAD, Without JVD or thyroid abnormality Respiratory: Better air movement bilateral. Currently on 90% high flow Cardiovascular: Regular rate/rhythm, Normal S1 S2, No murmurs Gastrointestinal: Normal bowel sounds, Soft and benign, Non-distended, No tenderness Musculoskeletal: No clubbing, No swelling, No tenderness Integumentary: No rashes Neurological: Normal gait, Normal speech, Normal strength at 5/5 x4 extr, Normal tone, Sensation intact, Cranial nerves 3-12 intact, Normal affect Lymphatics: No axilla or inguinal lymphadenopathy Impression: Acute respiratory failure with hypoxia secondary to bilateral COVID-19 pneumonia, unvaccinated Diabetes mellitus type 2 with hyperglycemia Hypertension Hyperlipidemia BPH Obesity, BMI 41.1 Plan: Acute respiratory failure with hypoxia secondary to bilateral COVID-19 pneumonia, unvaccinated: Patient requiring less oxygen at 90% high flow. Continue with IV Solu-Medrol, vitamin supplementation. Will continue baricitinib. Monitor chest x-ray. CRP and ferritin improved. Will continue to monitor labferritin and CRP. DVT prophylaxis in placeEliquis. Continue with pulmonology recommendations. Encourage proning, ambulation, incentive spirometer. Diabetes mellitus type 2 with hyperglycemia: Continue to increase Lantus for better control. Will continue to monitor and adjust appropriately. Accu-Cheks in place. Hypertension: Continue carvedilol and losartan. Will adjust dose accordingly. Hyperlipidemia: Continue Lipitor. BPH: Continue Cardura. Obesity, BMI 41.1: Will address lifestyle modification education. DVT prophylaxis: Eliquis CODE STATUS: Full code Advanced care [id number] minutes: Home at discharge Time Spent Managing Pts Care (In Minutes): 55
--- NOTE | 2021-06-13 07:33 | RAD REPORT ---
EXAM DESCRIPTION: RAD - Chest Single View - 06/13/2021 7:20 am CLINICAL HISTORY: follow up COVID COMPARISON: Chest Pa And Lat (2 Views) dated 06/08/2021; Chest Single View dated 11/12/2018 FINDINGS: Patchy bilateral airspace disease with decreased lung volumes but overall similar appearan ce compared with 06/08/2021 The heart size is within normal limits.No acute osseous abnormality. No s ignificant pleural effusions or pneumothorax. IMPRESSION: Decreased lung volumes but otherwise similar bilateral airspace disease.
[2021-06-13] MEDS: ASPIRIN EC 81 MG TAB PO SCH (08:00)
[2021-06-13] MEDS: METHYLPREDNISOLONE 40 MG INJ IV SCH ×2 (08:00→20:28)
[2021-06-13] MEDS: ZINC SULFATE 220 MG CAP PO SCH (08:00)
[2021-06-13] MEDS: LOSARTAN POTASSIUM 50 MG TABLET PO SCH (08:00)
[2021-06-13] MEDS: VITAMIN D 1000 UNIT TAB PO SCH (08:00)
[2021-06-13] MEDS: ASCORBIC ACID 500 MG TABLET PO SCH ×4 (08:01→20:29)
[2021-06-13] MEDS: APIXABAN 5 MG TABLET PO SCH ×2 (08:01→20:29)
[2021-06-13] MEDS: THIAMINE HCL 100 MG TABLET PO SCH ×2 (08:01→20:29)
[2021-06-13] MEDS: BENZONATATE 100 MG CAP PO PRN ×3 (08:57→21:05)
[2021-06-13] MEDS ORDERED: INSULIN GLARGINE 100 UNITS/ML SQ SCH ×2 (09:00→21:00)
[2021-06-13] MEDS: BARICITINIB 2 MG TABLET PO SCH (09:20)
[2021-06-13] MEDS ORDERED: GLUCAGON 1 MG/VIAL IM PRN (19:56)
[2021-06-13] MEDS ORDERED: D50W 25 GM/50 ML SYRINGE IV PRN (19:56)
[2021-06-13] MEDS: DOXAZOSIN 2 MG TAB PO SCH (20:29)
[2021-06-13] MEDS: INSULIN -REGULAR HUMAN 50 UNIT/0.5 ML ML SQ SCH (20:29)
[2021-06-13] MEDS: ATORVASTATIN 40 MG TAB PO SCH (20:29)
[2021-06-14 03:53] LABS: Basophils % 0.5 % (0-1.3); Hematocrit 36.2 % (39.6-49.0); Lymphocytes % 13.8 % (15.3-44.8); MPV 7.6 fL (7.6-11.3); RBC Red Blood Cell Count 4.17 M/uL (4.33-5.43)
[2021-06-14 04:17] LABS: ALT/SGPT 37 U/L (12-78); AST/SGOT 29 U/L (15-37); Albumin 2.6 g/dL (3.4-5.0); Alkaline Phosphatase 46 U/L (45-117); BUN Blood Urea Nitrogen 29 mg/dL (7-18); Bicarbonate 30 mmol/L (21-32); Bilirubin Total 0.6 mg/dL (0.2-1.0); Ferritin 637.9 ng/mL (26-388); Glucose Level 344 mg/dL (74-106); Magnesium 2.6 mg/dL (1.8-2.4); Potassium 4.3 mmol/L (3.5-5.1); Protein, Total 6.6 g/dL (6.4-8.2); Sodium Level 138 mmol/L (136-145)
[2021-06-14] MEDS: carvediloL 12.5 MG TAB PO SCH ×2 (05:01→17:00)
[2021-06-14] MEDS: INSULIN -REGULAR HUMAN 50 UNIT/0.5 ML ML SQ SCH ×4 (08:30→21:08)
[2021-06-14] MEDS: APIXABAN 5 MG TABLET PO SCH ×2 (08:31→21:07)
[2021-06-14] MEDS: BARICITINIB 2 MG TABLET PO SCH (08:31)
[2021-06-14] MEDS: ZINC SULFATE 220 MG CAP PO SCH (08:31)
[2021-06-14] MEDS: VITAMIN D 1000 UNIT TAB PO SCH (08:31)
[2021-06-14] MEDS: THIAMINE HCL 100 MG TABLET PO SCH ×2 (08:31→21:06)
[2021-06-14] MEDS: METHYLPREDNISOLONE 40 MG INJ IV SCH ×2 (08:31→21:07)
[2021-06-14] MEDS: ASPIRIN EC 81 MG TAB PO SCH (08:31)
[2021-06-14] MEDS: INSULIN GLARGINE 100 UNITS/ML SQ SCH ×2 (08:32→21:07)
[2021-06-14] MEDS: IVERMECTIN 3 MG TABLET PO SCH (08:32)
[2021-06-14] MEDS: ASCORBIC ACID 500 MG TABLET PO SCH ×4 (08:32→21:07)
[2021-06-14] MEDS: LOSARTAN POTASSIUM 50 MG TABLET PO SCH (08:32)
--- NOTE | 2021-06-14 12:25 | P.PN ---
Subjective Date of Service: 06/14/21 Chief Complaint: Hypoxemia Subjective: Improving, Doing well Physical Examination - Vital Signs Temperature: 97.6 F Blood Pressure: 147/63 Pulse: 60 Respirations: 22 Pulse Ox (%): 93 Assessment & Plan Discharge Plan: Home Plan to discharge in: Greater than 2 days Physician Review Additional Text: Covid: Positive CT chest: FINDINGS: No evidence of pulmonary thromboembolism. No acute aortic finding demonstrated. Moderate extensive ground-glass opacity is present throughout both lungs greatest along the periphery. This is most compatible with COVID-19 infection. No significant pericardial or pleural fluid. Mild lymphadenopathy is present in the mediastinum. No concerning bony finding. IMPRESSION: No evidence of pulmonary thromboembolism. Moderate ground-glass opacity bilaterally particularly along periphery of both lungs most compatible with COVID-19 infection. Physical exam: General: Alert, In no apparent distress, Oriented x3, Moderate distress, Obese HEENT: Atraumatic, PERRLA, Mucous membr. moist/pink, EOMI, Sclerae nonicteric Neck: Supple, 2+ carotid pulse no bruit, No LAD, Without JVD or thyroid abno rmality Respiratory: Better air movement bilateral. Using less oxygen. Currently on 80% high flow Cardiovascular: Regular rate/rhythm, Normal S1 S2, No murmurs Gastrointestinal: Normal bowel sounds, Soft and benign, Non-distended, No tenderness Musculoskeletal: No clubbing, No swelling, No tenderness Integumentary: No rashes Neurological: Normal gait, Normal speech, Normal strength at 5/5 x4 extr, Normal tone, Sensation intact, Cranial nerves 3-12 intact, Normal affect Lymphatics: No axilla or inguinal lymphadenopathy Impression: Acute respiratory failure with hypoxia secondary to bilateral COVID-19 pneumonia, unvaccinated Diabetes mellitus type 2 with hyperglycemia Hypertension Hyperlipidemia BPH Obesity, BMI 41.1 Plan: Acute respiratory failure with hypoxia secondary to bilateral COVID-19 pneumonia, unvaccinated: Patient continues to improve. Less oxygen requirement noted. Currently on 80% high flow. Encourage ambulation. Encourage incentive spirometer. Continue proning. Continue with IV Solu-Medrol, vitamin supplementation. Will continue with baricitinib. Continue to monitor chest x- ray. CRP and ferritin improved. Will continue to monitor labferritin and CRP. DVT prophylaxis in placeEliquis. Continue with pulmonology recommendations. Encourage proning, ambulation, incentive spirometer. Anticipate improvement over the next several days. Diabetes mellitus type 2 with hyperglycemia: Continue to increase Lantus for better control. Will continue to monitor and adjust appropriately. Accu-Cheks in place. Hypertension: Continue carvedilol and losartan. Will adjust dose accordingly. Hyperlipidemia: Continue Lipitor. BPH: Continue Cardura. Obesity, BMI 41.1: Will address lifestyle modification education. DVT prophylaxis: Eliquis CODE STATUS: Full code Advanced care [id number] minutes: Home at discharge Time Spent Managing Pts Care (In Minutes): 55
[2021-06-14] MEDS: BENZONATATE 100 MG CAP PO PRN (16:13)
[2021-06-14] MEDS: ATORVASTATIN 40 MG TAB PO SCH (21:05)
[2021-06-14] MEDS: DOXAZOSIN 2 MG TAB PO SCH (21:06)
[2021-06-15 04:56] LABS: Absolute Lymphocytes (CBC) 0.8 K/uL (0.7-4.9); Basophils % 0.3 % (0-1.3); Hematocrit 35.9 % (39.6-49.0); Lymphocytes % 9.3 % (15.3-44.8); MPV 7.8 fL (7.6-11.3); RBC Red Blood Cell Count 4.15 M/uL (4.33-5.43)
[2021-06-15 05:19] LABS: ALT/SGPT 36 U/L (12-78); AST/SGOT 24 U/L (15-37); Albumin 2.6 g/dL (3.4-5.0); Alkaline Phosphatase 45 U/L (45-117); BUN Blood Urea Nitrogen 27 mg/dL (7-18); Bicarbonate 33 mmol/L (21-32); Bilirubin Total 0.6 mg/dL (0.2-1.0); Ferritin 532.4 ng/mL (26-388); Glucose Level 269 mg/dL (74-106); Magnesium 2.5 mg/dL (1.8-2.4); Potassium 4.3 mmol/L (3.5-5.1); Protein, Total 6.5 g/dL (6.4-8.2); Sodium Level 140 mmol/L (136-145)
[2021-06-15] MEDS: carvediloL 12.5 MG TAB PO SCH ×2 (05:22→17:14)
[2021-06-15 06:07] LABS: Blood Morphology Comment NOT SEEN (NOT SEEN); Platelet Estimate ADEQ
--- NOTE | 2021-06-15 06:07 | P.PN ---
Subjective Date of Service: 06/15/21 Chief Complaint: Hypoxemia Subjective: Improving, Doing well Physical Examination - Vital Signs Temperature: 97.1 F Blood Pressure: 152/81 Pulse: 61 Respirations: 18 Pulse Ox (%): 89 Assessment & Plan Discharge Plan: Home Plan to discharge in: Greater than 2 days Physician Review Additional Text: Covid: Positive CT chest: FINDINGS: No evidence of pulmonary thromboembolism. No acute aortic finding demonstrated. Moderate extensive ground-glass opacity is present throughout both lungs greatest along the periphery. This is most compatible with COVID-19 infection. No significant pericardial or pleural fluid. Mild lymphadenopathy is present in the mediastinum. No concerning bony finding. IMPRESSION: No evidence of pulmonary thromboembolism. Moderate ground-glass opacity bilaterally particularly along periphery of both lungs most compatible with COVID-19 infection. Physical exam: General: Alert, In no apparent distress, Oriented x3, Moderate distress, Obese HEENT: Atraumatic, PERRLA, Mucous membr. moist/pink, EOMI, Sclerae nonicteric Neck: Supple, 2+ carotid pulse no bruit, No LAD, Without JVD or thyroid abno rmality Respiratory: Better air movement noted. Patient continues to improve. Down to 75% high flow Cardiovascular: Regular rate/rhythm, Normal S1 S2, No murmurs Gastrointestinal: Normal bowel sounds, Soft and benign, Non-distended, No tenderness Musculoskeletal: No clubbing, No swelling, No tenderness Integumentary: No rashes Neurological: Normal gait, Normal speech, Normal strength at 5/5 x4 extr, Normal tone, Sensation intact, Cranial nerves 3-12 intact, Normal affect Lymphatics: No axilla or inguinal lymphadenopathy Impression: Acute respiratory failure with hypoxia secondary to bilateral COVID-19 pneumonia, unvaccinated Diabetes mellitus type 2 with hyperglycemia Hypertension Hyperlipidemia BPH Obesity, BMI 41.1 Plan: Acute respiratory failure with hypoxia secondary to bilateral COVID-19 pneumonia, unvaccinated: Patient continues to improve. Less oxygen requirement noted. No down to 75% high flow. Encourage ambulation. Encourage incentive spirometer. Continue proning. Continue with IV Solu-Medrol, vitamin supplementation. Will continue with baricitinib. Continue to monitor chest x- ray. CRP and ferritin improved. Will continue to monitor labferritin and CRP. DVT prophylaxis in placeEliquis. Continue with pulmonology recommendations. Encourage proning, ambulation, incentive spirometer. Anticipate improvement over the next several days. Diabetes mellitus type 2 with hyperglycemia: Continue to increase Lantus for better control. Will continue to monitor and adjust appropriately. Accu-Cheks in place. Hypertension: Continue carvedilol and losartan. Will adjust dose accordingly. Hyperlipidemia: Continue Lipitor. BPH: Continue Cardura. Obesity, BMI 41.1: Will address lifestyle modification education. DVT prophylaxis: Eliquis CODE STATUS: Full code Advanced care [email or web address] minutes: Home at discharge Time Spent Managing Pts Care (In Minutes): 55
[2021-06-15] MEDS: BARICITINIB 2 MG TABLET PO SCH (07:44)
[2021-06-15] MEDS: LOSARTAN POTASSIUM 50 MG TABLET PO SCH (07:44)
[2021-06-15] MEDS: VITAMIN D 1000 UNIT TAB PO SCH (07:44)
[2021-06-15] MEDS: THIAMINE HCL 100 MG TABLET PO SCH ×2 (07:44→20:38)
[2021-06-15] MEDS: ASCORBIC ACID 500 MG TABLET PO SCH ×4 (07:44→20:38)
[2021-06-15] MEDS: METHYLPREDNISOLONE 40 MG INJ IV SCH ×2 (07:44→20:38)
[2021-06-15] MEDS: ZINC SULFATE 220 MG CAP PO SCH (07:44)
[2021-06-15] MEDS: APIXABAN 5 MG TABLET PO SCH ×2 (07:44→20:38)
[2021-06-15] MEDS: ASPIRIN EC 81 MG TAB PO SCH (07:44)
[2021-06-15] MEDS: INSULIN GLARGINE 100 UNITS/ML SQ SCH ×2 (07:45→20:40)
[2021-06-15] MEDS: INSULIN -REGULAR HUMAN 50 UNIT/0.5 ML ML SQ SCH ×4 (07:53→20:39)
[2021-06-15] MEDS: BENZONATATE 100 MG CAP PO PRN (08:48)
[2021-06-15] MEDS ORDERED: INSULIN GLARGINE 100 UNITS/ML SQ SCH (09:00)
[2021-06-15] MEDS ORDERED: FUROSEMIDE 20 MG/ 2ML VIAL IV ONE (15:36)
--- NOTE | 2021-06-15 15:37 | P.PN ---
Subjective Date of Service: 06/15/21 Chief Complaint: REsp failure Subjective: Improving (Still high conc of OP2) Review of Systems General: Weakness Respiratory: Shortness of Breath Physical Examination - Vital Signs Temperature: 97.1 F Blood Pressure: 155/70 Pulse: 61 Respirations: 18 Pulse Ox (%): 89 - Physical Exam General: Alert, Oriented x3, Cooperative Assessment & Plan - Problems (Diagnosis) (1) Pneumonia due to COVID-19 virus Current Visit: Yes Status: Acute Plan: REsp failure fromCOVID/ on Max TX/labs [id number] to wean O2/ X1 dose of Lasix
[2021-06-15] MEDS: DOXAZOSIN 2 MG TAB PO SCH (20:37)
[2021-06-15] MEDS: ATORVASTATIN 40 MG TAB PO SCH (20:38)
[2021-06-16] MEDS: ACETAMINOPHEN 500 MG TAB PO PRN (03:31)
--- NOTE | 2021-06-16 06:19 | P.PN ---
Subjective Date of Service: 06/16/21 Chief Complaint: REsp failure Subjective: Other (Patient continues to improve. Less oxygen requirement noted today. Currently on high flow at 70%) Physical Examination - Vital Signs Temperature: 97.0 F Blood Pressure: 157/77 Pulse: 86 Respirations: 20 Pulse Ox (%): 91 Assessment & Plan Discharge Plan: Home Plan to discharge in: Greater than 2 days Physician Review Additional Text: Covid: Positive CT chest: FINDINGS: No evidence of pulmonary thromboembolism. No acute aortic finding demonstrated. Moderate extensive ground-glass opacity is present throughout both lungs greatest along the periphery. This is most compatible with COVID-19 infection. No significant pericardial or pleural fluid. Mild lymphadenopathy is present in the mediastinum. No concerning bony finding. IMPRESSION: No evidence of pulmonary thromboembolism. Moderate ground-glass opacity bilaterally particularly along periphery of both lungs most compatible with COVID-19 infection. Follow up CXR: COMPARISON: June 13 FINDINGS: Mild improvement in diffuse bilateral pulmonary opacities. Heart is borderline enlarged IMPRESSION: Mild improvement in the bilateral pneumonia Physical exam: General: Alert, In no apparent distress, Oriented x3, Moderate distress, Obese HEENT: Atraumatic, PERRLA, Mucous membr. moist/pink, EOMI, Sclerae nonicteric Neck: Supple, 2+ carotid pulse no bruit, No LAD, Without JVD or thyroid abnormality Respiratory: Better air movement noted. Patient continues to improve. Down to 70% high flow Cardiovascular: Regular rate/rhythm, Normal S1 S2, No murmurs Gastrointestinal: Normal bowel sounds, Soft and benign, Non-distended, No tenderness Musculoskeletal: No clubbing, No swelling, No tenderness Integumentary: No rashes Neurological: Normal gait, Normal speech, Normal strength at 5/5 x4 extr, Normal tone, Sensation intact, Cranial nerves 3-12 intact, Normal affect Lymphatics: No axilla or inguinal lymphadenopathy Impression: Acute respiratory failure with hypoxia secondary to bilateral COVID-19 pneumonia, unvaccinated Diabetes mellitus type 2 with hyperglycemia Hypertension Hyperlipidemia BPH Obesity, BMI 41.1 Plan: Acute respiratory failure with hypoxia secondary to bilateral COVID-19 pneumonia, unvaccinated: Patient continues to improve. Less oxygen requirement noted. Now down to 70% high flow. Encourage ambulation. Encourage incentive spirometer. Continue proning. Continue with IV Solu-Medrol, vitamin supplementation. Will continue with baricitinib. Continue to monitor chest x- ray. CRP and ferritin improved. Will continue to monitor labferritin and CRP. DVT prophylaxis in placeEliquis. Continue with pulmonology recommendations. Encourage proning, ambulation, incentive spirometer. Anticipate improvement over the next several days. Diabetes mellitus type 2 with hyperglycemia: Continue to increase Lantus for better control. Now up to Lantus 50 units subcu twice daily. Will continue to monitor and adjust appropriately. Accu-Cheks in place. Hypertension: Continue carvedilol and losartan. Will adjust dose accordingly. Hyperlipidemia: Continue Lipitor. BPH: Continue Cardura. Obesity, BMI 41.1: Will address lifestyle modification education. DVT prophylaxis: Eliquis CODE STATUS: Full code Advanced care [email or web address] minutes: Home at discharge Time Spent Managing Pts Care (In Minutes): 55
[2021-06-16] MEDS: carvediloL 12.5 MG TAB PO SCH ×2 (06:22→17:02)
[2021-06-16 06:48] LABS: Absolute Lymphocytes (CBC) 0.7 K/uL (0.7-4.9); Basophils % 0.1 % (0-1.3); Hematocrit 28.3 % (39.6-49.0); Lymphocytes % 9.4 % (15.3-44.8); MPV 7.8 fL (7.6-11.3); RBC Red Blood Cell Count 3.28 M/uL (4.33-5.43)
[2021-06-16 07:00] LABS: ALT/SGPT 35 U/L (12-78); AST/SGOT 18 U/L (15-37); Albumin 2.4 g/dL (3.4-5.0); Alkaline Phosphatase 39 U/L (45-117); BUN Blood Urea Nitrogen 40 mg/dL (7-18); Bicarbonate 31 mmol/L (21-32); Bilirubin Total 0.6 mg/dL (0.2-1.0); Ferritin 414.7 ng/mL (26-388); Glucose Level 346 mg/dL (74-106); Magnesium 2.3 mg/dL (1.8-2.4); Potassium 4.5 mmol/L (3.5-5.1); Protein, Total 5.7 g/dL (6.4-8.2); Sodium Level 139 mmol/L (136-145)
--- NOTE | 2021-06-16 07:16 | RAD REPORT ---
EXAM DESCRIPTION: Mohan Single View06/16/2021 5:01 am CLINICAL HISTORY: Shortness of breath COMPARISON: June 13 FINDINGS: Mild improvement in diffuse bilateral pulmonary opacities. Heart is borderline enlarged IMPRESSION: Mild improvement in the bilateral pneumonia
[2021-06-16] MEDS: INSULIN -REGULAR HUMAN 50 UNIT/0.5 ML ML SQ SCH ×4 (08:23→21:00)
[2021-06-16] MEDS: INSULIN GLARGINE 100 UNITS/ML SQ SCH (08:24)
[2021-06-16] MEDS: LOSARTAN POTASSIUM 50 MG TABLET PO SCH (08:24)
[2021-06-16] MEDS: BENZONATATE 100 MG CAP PO PRN (08:24)
[2021-06-16] MEDS: ZINC SULFATE 220 MG CAP PO SCH (08:24)
[2021-06-16] MEDS: ASCORBIC ACID 500 MG TABLET PO SCH ×4 (08:24→20:58)
[2021-06-16] MEDS: APIXABAN 5 MG TABLET PO SCH ×2 (08:24→20:59)
[2021-06-16] MEDS: VITAMIN D 1000 UNIT TAB PO SCH (08:25)
[2021-06-16] MEDS: IVERMECTIN 3 MG TABLET PO SCH (08:25)
[2021-06-16] MEDS: METHYLPREDNISOLONE 40 MG INJ IV SCH ×2 (08:25→20:59)
[2021-06-16] MEDS: BARICITINIB 2 MG TABLET PO SCH (08:25)
[2021-06-16] MEDS: ASPIRIN EC 81 MG TAB PO SCH (08:25)
[2021-06-16] MEDS: THIAMINE HCL 100 MG TABLET PO SCH ×2 (08:25→20:59)
[2021-06-16] MEDS: DOXAZOSIN 2 MG TAB PO SCH (20:59)
[2021-06-16] MEDS: ATORVASTATIN 40 MG TAB PO SCH (20:59)
[2021-06-16] MEDS ORDERED: INSULIN GLARGINE 100 UNITS/ML SQ SCH (21:00)
[2021-06-17] MEDS: carvediloL 12.5 MG TAB PO SCH ×2 (06:07→16:26)
--- NOTE | 2021-06-17 06:15 | P.PN ---
Subjective Date of Service: 06/17/21 Chief Complaint: REsp failure Subjective: Improving Physical Examination - Vital Signs Temperature: 97.1 F Blood Pressure: 147/71 Pulse: 61 Respirations: 22 Pulse Ox (%): 92 Assessment & Plan Discharge Plan: Home Plan to discharge in: 24 Hours Physician Review Additional Text: Covid: Positive CT chest: FINDINGS: No evidence of pulmonary thromboembolism. No acute aortic finding demonstrated. Moderate extensive ground-glass opacity is present throughout both lungs greatest along the periphery. This is most compatible with COVID-19 infection. No significant pericardial or pleural fluid. Mild lymphadenopathy is present in the mediastinum. No concerning bony finding. IMPRESSION: No evidence of pulmonary thromboembolism. Moderate ground-glass opacity bilaterally particularly along periphery of both lungs most compatible with COVID-19 infection. Follow up CXR: COMPARISON: June 13 FINDINGS: Mild improvement in diffuse bilateral pulmonary opacities. Heart is borderline enlarged IMPRESSION: Mild improvement in the bilateral pneumonia Physical exam: General: Alert, In no apparent distress, Oriented x3, Moderate distress, Obese HEENT: Atraumatic, PERRLA, Mucous membr. moist/pink, EOMI, Sclerae nonicteric Neck: Supple, 2+ carotid pulse no bruit, No LAD, Without JVD or thyroid abn ormality Respiratory: Patient continues to improve. Now down to 4 L. Cardiovascular: Regular rate/rhythm, Normal S1 S2, No murmurs Gastrointestinal: Normal bowel sounds, Soft and benign, Non-distended, No tenderness Musculoskeletal: No clubbing, No swelling, No tenderness Integumentary: No rashes Neurological: Normal gait, Normal speech, Normal strength at 5/5 x4 extr, Normal tone, Sensation intact, Cranial nerves 3-12 intact, Normal affect Lymphatics: No axilla or inguinal lymphadenopathy Impression: Acute respiratory failure with hypoxia secondary to bilateral COVID-19 pneumonia, unvaccinated Diabetes mellitus type 2 with hyperglycemia Hypertension Hyperlipidemia BPH Obesity, BMI 41.1 Plan: Acute respiratory failure with hypoxia secondary to bilateral COVID-19 pneumonia, unvaccinated: Patient continues to improve. Patient now down to 4 to 5 L per nasal cannula. Continue incentive spirometer, ambulation, proning. IV Solu-Medrol decreased. Continue with baricitinib. Continue to monitor CRP and ferritin. Anticipate continued improvement. Patient on DVT prophylaxisEliquis. Likely home tomorrow if able to ambulate well without significant desaturations with oxygen. Diabetes mellitus type 2 with hyperglycemia: Continue to address Lantus for better control.. Will continue to monitor and adjust appropriately. Accu-Cheks in place. Hypertension: Continue carvedilol and losartan. Will adjust dose accordingly. Hyperlipidemia: Continue Lipitor. BPH: Continue Cardura. Obesity, BMI 41.1: Will address lifestyle modification education. DVT prophylaxis: Eliquis CODE STATUS: Full code Advanced care [email or web address] minutes: Home at discharge with oxygen Time Spent Managing Pts Care (In Minutes): 55
[2021-06-17 07:21] LABS: Absolute Lymphocytes (CBC) 1.3 K/uL (0.7-4.9); Basophils % 0.1 % (0-1.3); Hematocrit 27.5 % (39.6-49.0); MPV 7.9 fL (7.6-11.3); RBC Red Blood Cell Count 3.18 M/uL (4.33-5.43)
[2021-06-17 07:44] LABS: ALT/SGPT 40 U/L (12-78); AST/SGOT 17 U/L (15-37); Albumin 2.6 g/dL (3.4-5.0); Alkaline Phosphatase 34 U/L (45-117); BUN Blood Urea Nitrogen 28 mg/dL (7-18); Bicarbonate 32 mmol/L (21-32); Bilirubin Total 0.5 mg/dL (0.2-1.0); C-Reactive Protein 9.06 mg/L (<3.00); Ferritin 393.5 ng/mL (26-388); Glucose Level 244 mg/dL (74-106); Magnesium 2.2 mg/dL (1.8-2.4); Potassium 4.5 mmol/L (3.5-5.1); Protein, Total 5.8 g/dL (6.4-8.2); Sodium Level 140 mmol/L (136-145)
[2021-06-17] MEDS: INSULIN -REGULAR HUMAN 50 UNIT/0.5 ML ML SQ SCH ×4 (08:07→20:37)
[2021-06-17] MEDS: VITAMIN D 1000 UNIT TAB PO SCH (08:08)
[2021-06-17] MEDS: ASCORBIC ACID 500 MG TABLET PO SCH ×4 (08:08→20:37)
[2021-06-17] MEDS: ASPIRIN EC 81 MG TAB PO SCH (08:09)
[2021-06-17] MEDS: BARICITINIB 2 MG TABLET PO SCH (08:09)
[2021-06-17] MEDS: ZINC SULFATE 220 MG CAP PO SCH (08:09)
[2021-06-17] MEDS: INSULIN GLARGINE 100 UNITS/ML SQ SCH ×2 (08:09→20:38)
[2021-06-17] MEDS: APIXABAN 5 MG TABLET PO SCH ×2 (08:09→20:36)
[2021-06-17] MEDS: METHYLPREDNISOLONE 40 MG INJ IV SCH ×2 (08:09→20:37)
[2021-06-17] MEDS: THIAMINE HCL 100 MG TABLET PO SCH ×2 (08:09→20:36)
[2021-06-17] MEDS: LOSARTAN POTASSIUM 50 MG TABLET PO SCH (08:09)
--- NOTE | 2021-06-17 10:41 | P.PN ---
Subjective Date of Service: 06/17/21 Chief Complaint: REsp failure Subjective: Improving (Doign better Improving) Review of Systems General: Weakness Respiratory: Shortness of Breath Physical Examination - Vital Signs Temperature: 97.7 F Blood Pressure: 158/77 Pulse: 66 Respirations: 24 Pulse Ox (%): 92 Assessment & Plan - Problems (Diagnosis) (1) Pneumonia due to COVID-19 virus Current Visit: Yes Status: Acute Plan: Improving. Decrease steroids/
[2021-06-17] MEDS: DOXAZOSIN 2 MG TAB PO SCH (20:36)
[2021-06-17] MEDS: ATORVASTATIN 40 MG TAB PO SCH (20:40)
[2021-06-18] MEDS: carvediloL 12.5 MG TAB PO SCH ×2 (06:00→06:31)
--- NOTE | 2021-06-18 06:13 | P.PN ---
Subjective Date of Service: 06/18/21 Chief Complaint: REsp failure Subjective: Improving, Doing well Physical Examination - Vital Signs Temperature: 97.6 F Blood Pressure: 152/65 Pulse: 60 Respirations: 16 Pulse Ox (%): 97 Assessment & Plan Discharge Plan: Home Physician Review Additional Text: Covid: Positive CT chest: FINDINGS: No evidence of pulmonary thromboembolism. No acute aortic finding demonstrated. Moderate extensive ground-glass opacity is present throughout both lungs greatest along the periphery. This is most compatible with COVID-19 infection. No significant pericardial or pleural fluid. Mild lymphadenopathy is present in the mediastinum. No concerning bony finding. IMPRESSION: No evidence of pulmonary thromboembolism. Moderate ground-glass opacity bilaterally particularly along periphery of both lungs most compatible with COVID-19 infection. Follow up CXR: COMPARISON: June 13 FINDINGS: Mild improvement in diffuse bilateral pulmonary opacities. Heart is borderline enlarged IMPRESSION: Mild improvement in the bilateral pneumonia Physical exam: General: Alert, In no apparent distress, Oriented x3, Moderate distress, Obese HEENT: Atraumatic, PERRLA, Mucous membr. moist/pink, EOMI, Sclerae nonicteric Neck: Supple, 2+ carotid pulse no bruit, No LAD, Without JVD or thyroid abnormality Respiratory: Patient continues to improve. Now down to 3 L Cardiovascular: Regular rate/rhythm, Normal S1 S2, No murmurs Gastrointestinal: Normal bowel sounds, Soft and benign, Non-distended, No tenderness Musculoskeletal: No clubbing, No swelling, No tenderness Integumentary: No rashes Neurological: Normal gait, Normal speech, Normal strength at 5/5 x4 extr, Normal tone, Sensation intact, Cranial nerves 3-12 intact, Normal affect Lymphatics: No axilla or inguinal lymphadenopathy Impression: Acute respiratory failure with hypoxia secondary to bilateral COVID-19 pneumonia, unvaccinated Diabetes mellitus type 2 with hyperglycemia Hypertension Hyperlipidemia BPH Obesity, BMI 41.1 Plan: Acute respiratory failure with hypoxia secondary to bilateral COVID-19 pneumonia, unvaccinated: Patient doing well at this time. Now down to 3 L. Will plan for discharge today. Diabetes mellitus type 2 with hyperglycemia: Continue to address Lantus for better control.. Will continue to monitor and adjust appropriately. Accu-Cheks in place. Hypertension: Continue carvedilol and losartan. Will adjust dose accordingly. Hyperlipidemia: Continue Lipitor. BPH: Continue Cardura. Obesity, BMI 41.1: Will address lifestyle modification education. DVT prophylaxis: Eliquis CODE STATUS: Full code Advanced care [id number] minutes: Home at discharge with oxygen Time Spent Managing Pts Care (In Minutes): 55
[2021-06-18] MEDS: INSULIN -REGULAR HUMAN 50 UNIT/0.5 ML ML SQ SCH (08:12)
[2021-06-18] MEDS: INSULIN GLARGINE 100 UNITS/ML SQ SCH (08:13)
[2021-06-18] MEDS: LOSARTAN POTASSIUM 50 MG TABLET PO SCH (08:14)
[2021-06-18] MEDS: METHYLPREDNISOLONE 40 MG INJ IV SCH (08:14)
[2021-06-18] MEDS: ASPIRIN EC 81 MG TAB PO SCH (08:14)
[2021-06-18] MEDS: VITAMIN D 1000 UNIT TAB PO SCH (08:14)
[2021-06-18] MEDS: ZINC SULFATE 220 MG CAP PO SCH (08:14)
[2021-06-18] MEDS: THIAMINE HCL 100 MG TABLET PO SCH (08:14)
[2021-06-18] MEDS: ASCORBIC ACID 500 MG TABLET PO SCH (08:14)
[2021-06-18] MEDS: BARICITINIB 2 MG TABLET PO SCH (08:15)
[2021-06-18] MEDS: APIXABAN 5 MG TABLET PO SCH (08:15)
--- NOTE | 2021-06-18 09:38 | P.DS ---
Admission Date: 06/11/21 Discharge Date: 06/18/21 Primary Care Provider: [facility] Disposition: ROUTINE DISCHARGE Discharge Condition: GOOD Reason for Admission: Dyspnea Consultations: Pulmonary-Dr. Salmeron Procedures: Covid: Positive CT chest: FINDINGS: No evidence of pulmonary thromboembolism. No acute aortic finding demonstrated. Moderate extensive ground-glass opacity is present throughout both lungs greatest along the periphery. This is most compatible with COVID-19 infection. No significant pericardial or pleural fluid. Mild lymphadenopathy is present in the mediastinum. No concerning bony finding. IMPRESSION: No evidence of pulmonary thromboembolism. Moderate ground-glass opacity bilaterally particularly along periphery of both lungs most compatible with COVID-19 infection. Follow up CXR: COMPARISON: June 13 FINDINGS: Mild improvement in diffuse bilateral pulmonary opacities. Heart is borderline enlarged IMPRESSION: Mild improvement in the bilateral pneumonia Medical problem list: Acute respiratory failure with hypoxia secondary to bilateral COVID-19 pneumonia, unvaccinated Diabetes mellitus type 2 with hyperglycemia Hypertension Hyperlipidemia BPH Obesity, BMI 41.1 Brief History of Present Illness: 60-year-old male presented to the emergency room with shortness of breath. Patient diagnosed with Covid 4 days ago. Patient seen in the ER. Saturations were poor. Patient required 6 L per nasal cannula. Patient admitted for Covid pneumonia. Hospital Course: Patient presented with acute respiratory failure with hypoxia secondary to bilateral Covid pneumonia. Patient unvaccinated. The patient was admitted for treatment. Patient was seen and evaluated by pulmonology. The patient required IV steroids, supplements and oxygen. At discharge patient doing well at this time. No significant shortness of breath. Patient currently stable on 3 L per nasal cannula. Patient will need to continue with home oxygen. Home oxygen arranged at discharge. Patient currently on 3 L per minute. Patient will continue to maintain oxygen above 93%. This can be weaned off with the help of pulmonology or his PCP as an outpatient. At discharge the patient will continue with prednisone 20 mg 1 pill twice daily for 7 days then 1 p.o. once daily for 7 days. The patient will be provided aspirin 81 mg daily, Tessalon Perles 100 mg 1 pill 3 times a day as needed for cough and albuterol 2 puffs 3 times a day as needed for shortness of breath. The patient will continue with vitamin supplementation including vitamin C 500 mg 1 pill 3 times a day, vitamin D 2000 units daily, zinc 220 mg daily, and thiamine 100 mg 1 pill twice daily. Education on COVID-19 isolation provided. Patient will continue with incentive spirometer, proning, facemask use, handwashing, and social distancing. Recommend for the patient to follow-up with pulmonology in 1 week to follow-up his hospitalization. Pulmonology will help wean off medication and oxygen. Recommend follow-up with PCP in 1 week to follow-up his hospitalization. Patient with diabetes mellitus type 2. Patient is insulin-dependent. At discharge patient will continue with [place] diabetic diet. At discharge patient will continue with Lantus 20 units subcu twice daily. Recommend to maintain blood sugars less than 140 fasting and less than 200 after meals. If blood sugars are above 200 then he may increase his Lantus by 1 to 2 units for better control. This can be done with the help of his PCP. Recommend to recheck hemoglobin A1c every 3 months to monitor his progress. Recommend follow-up with PCP in 1 week to further monitor his care and adjust his medication. Patient with hypertension. Medications have been adjusted during the course of his stay. At discharge patient will continue with carvedilol 12.5 mg 1 pill twice daily and losartan 100 mg daily. Recommend to maintain blood pressure less than 130/80. If blood pressure greater than 140/90 consistently adjustments in medication may be required. This can be done with the help of his PCP. Patient with hyperlipidemia. At discharge patient will continue with Lipitor 40 mg daily. Patient with BPH. At discharge patient will continue with Cardura 4 mg daily Vital Signs/Physical Exam: Temp Pulse Resp BP Pulse Ox 97.6 F 60 16 152/65 H 97 06/18/21 09:36 06/18/21 09:36 06/18/21 09:36 06/18/21 09:36 06/18/21 09:36 General: Alert, In no apparent distress, Oriented x3, Cooperative HEENT: Atraumatic Neck: Supple Respiratory: Clear to auscultation bilaterally, Normal air movement, Other (Currently on 3 L per nasal cannula) Cardiovascular: Normal pulses, Regular rate/rhythm Gastrointestinal: Normal bowel sounds Musculoskeletal: No erythema, No tenderness, No warmth Integumentary: No tenderness/swelling Neurological: Normal speech, Normal strength at 5/5 x4 extr, Normal tone Laboratory Data at Discharge: WBC 9.80 K/uL (4.3-10.9) D 06/17/21 06:57 Hgb 9.7 g/dL (13.6-17.9) L 06/17/21 06:57 Hct 27.5 % (39.6-49.0) L 06/17/21 06:57 Plt Count 436 K/uL (152-406) H 06/17/21 06:57 PT 12.5 SECONDS (9.5-12.5) 06/11/21 16:30 INR 1.09 06/11/21 16:30 APTT 25.4 SECONDS (24.3-36.9) 06/11/21 16:30 Sodium 140 mmol/L (136-145) 06/17/21 07:04 Potassium 4.5 mmol/L (3.5-5.1) 06/17/21 07:04 BUN 28 mg/dL (7-18) H 06/17/21 07:04 Creatinine 0.68 mg/dL (0.55-1.3) 06/17/21 07:04 Glucose 244 mg/dL (74-106) H 06/17/21 07:04 Magnesium 2.2 mg/dL (1.8-2.4) 06/17/21 07:04 Total Bilirubin 0.5 mg/dL (0.2-1.0) 06/17/21 07:04 AST 17 U/L (15-37) 06/17/21 07:04 ALT 40 U/L (12-78) 06/17/21 07:04 Alkaline Phosphatase 34 U/L (45-117) L 06/17/21 07:04 Triglycerides 138 mg/dL (<150) 06/12/21 02:35 Cholesterol 149 mg/dL (<200) 06/12/21 02:35 HDL Cholesterol 38 mg/dL (40-60) L 06/12/21 02:35 Cholesterol/HDL Ratio 3.92 06/12/21 02:35 Lipase 191 U/L (73-393) 06/11/21 16:30 Home Medications: Aspirin [Aspir-Low] 81 mg PO DAILY 11/12/18 Losartan Potassium [Cozaar] 100 mg PO DAILY 11/12/18 Atorvastatin Calcium [Lipitor] 40 mg PO BEDTIME #30 tab 11/15/18 Doxazosin [Cardura*] 4 mg PO BEDTIME #30 tab 11/15/18 Albuterol Inhaler [Ventolin Inhaler*] 2 puff IH TID PRN #1 hfa.aer.ad 06/18/21 Ascorbic Acid [Vitamin C*] 500 mg PO TID #90 tablet 06/18/21 Benzonatate [Tessalon Perle*] 100 mg PO TID PRN #10 cap 06/18/21 Cholecalciferol (Vitamin D3) [Vitamin D 1000 Iu Tab*] 2,000 unit PO DAILY #60 tab 06/18/21 Insulin Glargine Human [Lantus*] 20 unit SQ BID #1 vial 06/18/21 Thiamine HCl [Vitamin B-1*] 100 mg PO BID #60 tablet 06/18/21 Zinc Sulfate [Zinc Sulfate*] 220 mg PO DAILY #30 cap 06/18/21 carvediloL [Coreg*] 12.5 mg PO BID 6AM 6PM #60 tab 06/18/21 predniSONE [Prednisone*] 20 mg PO SEECOM #21 tab 06/18/21 New Medications: carvediloL [Coreg*] 12.5 mg PO BID 6AM 6PM #60 tab Insulin Glargine Human [Lantus*] 20 unit SQ BID #1 vial predniSONE [Prednisone*] 20 mg PO SEECOM #21 tab Benzonatate [Tessalon Perle*] 100 mg PO TID PRN #10 cap PRN Reason: Cough Albuterol Inhaler [Ventolin Inhaler*] 2 puff IH TID PRN #1 hfa.aer.ad PRN Reason: Shortness Of Breath Ascorbic Acid [Vitamin C*] 500 mg PO TID #90 tablet Cholecalciferol (Vitamin D3) [Vitamin D 1000 Iu Tab*] 2,000 unit PO DAILY #60 tab Zinc Sulfate [Zinc Sulfate*] 220 mg PO DAILY #30 cap Physician Discharge Instructions: Patient presented with acute respiratory failure with hypoxia secondary to bilateral Covid pneumonia. Patient unvaccinated. The patient was admitted for treatment. Patient was seen and evaluated by pulmonology. The patient required IV steroids, supplements and oxygen. At discharge patient doing well at this time. No significant shortness of breath. Patient currently stable on 3 L per nasal cannula. Patient will need to continue with home oxygen. Home oxygen arranged at discharge. Patient currently on 3 L per minute. Patient will continue to maintain oxygen above 93%. This can be weaned off with the help of pulmonology or his PCP as an outpatient. At discharge the patient will continue with prednisone 20 mg 1 pill twice daily for 7 days then 1 p.o. once daily for 7 days. The patient will be provided aspirin 81 mg daily, Tessalon Perles 100 mg 1 pill 3 times a day as needed for cough and albuterol 2 puffs 3 times a day as needed for shortness of breath. The patient will continue with vitamin supplementation including vitamin C 500 mg 1 pill 3 times a day, vitamin D 2000 units daily, zinc 220 mg daily, and thiamine 100 mg 1 pill twice daily. Education on COVID-19 isolation provided. Patient will continue with incentive spirometer, proning, facemask use, handwashing, and social distancing. Recommend for the patient to follow-up with pulmonology in 1 week to follow-up his hospitalization. Pulmonology will help wean off medication and oxygen. Recommend follow-up with PCP in 1 week to follow-up his hospitalization. Patient with diabetes mellitus type 2. Patient is insulin-dependent. At discharge patient will continue with [place] diabetic diet. At discharge patient will continue with Lantus 20 units subcu twice daily. Recommend to maintain blood sugars less than 140 fasting and less than 200 after meals. If blood sugars are above 200 then he may increase his Lantus by 1 to 2 units for better control. This can be done with the help of his PCP. Recommend to recheck hemoglobin A1c every 3 months to monitor his progress. Recommend follow-up with PCP in 1 week to further monitor his care and adjust his medication. Patient with hypertension. Medications have been adjusted during the course of his stay. At discharge patient will continue with carvedilol 12.5 mg 1 pill twice daily and losartan 100 mg daily. Recommend to maintain blood pressure less than 130/80. If blood pressure greater than 140/90 consistently adjustments in medication may be required. This can be done with the help of his PCP. Patient with hyperlipidemia. At discharge patient will continue with Lipitor 40 mg daily. Patient with BPH. At discharge patient will continue with Cardura 4 mg daily Diet: ADA Activity: Ad babatunde Followup: PAULETTE HATCH [Primary Care Provider] - Time spent managing pt's care (in minutes): 55
[2021-06-18 13:00] VITALS: BP 134/61; TEMP 97.3
[2021-06-18 13:16] VITALS: O2SAT 94
== END 2021-06-18 12:20 | disposition home or self-care (01) | DRG 177 ==
LOC: ER 15:38 → ERHOLD 18:58 → 4TH 06-12 16:09
PROVIDERS: ADMIT Hospitalist; ATTEND Family Medicine
PROC: 5A09557 Assistance with Respiratory Ventilation, Greater than 96 Consecutive Hours, Continuous Positive Airway Pressure (ICD-10-PCS; principal; 2021-06-12)
DX: U07.1 COVID-19 (principal); J12.82 Pneumonia due to coronavirus disease 2019; J96.01 Acute respiratory failure with hypoxia; Z68.41 Body mass index [BMI] 40.0-44.9, adult; E66.01 Morbid (severe) obesity due to excess calories; E78.5 Hyperlipidemia, unspecified; N40.0 Benign prostatic hyperplasia without lower urinary tract symptoms; E11.65 Type 2 diabetes mellitus with hyperglycemia; I10 Essential (primary) hypertension; Z88.0 Allergy status to penicillin; Z79.82 Long term (current) use of aspirin; Z53.29 Procedure and treatment not carried out because of patient's decision for other reasons; Z79.899 Other long term (current) drug therapy; Z79.4 Long term (current) use of insulin; Z79.52 Long term (current) use of systemic steroids
CPT/HCPCS: 36415; 71045; 71275; 80048; 80053; 80061; 80076; 82728; 82947; 83036; 83605; 83690; 83735; 84145; 84484; 85025; 85379; 85610; 85730; 86140; 94002; 94003; 94010; 94760; 96374; 96375; 97110; 97112; 97116; 97161; 99284; J1815; J1940; J2405; J2920; J2930; Q9967; U0003